=== PATIENT | female | born 1955 | race Caucasian/White ===

== ENCOUNTER 2017-05-05 14:41 | Inpatient (IN) | payer MEDICAID ==
[2017-05-05] VITALS (8 sets, daily range): BP systolic 90–110; BP diastolic 30–36
[~2017-05-05] VITALS: Ht 152.4 cm; Wt 136.5 kg
[~2017-05-05 14:41] MED LIST: ALBU18HF2 INH; BECL8.7A7 INH; CYCL-1 PO; DOCU-20 PO; EST1T PO; IPRA3AMP IH; LACT1CAP65 PO; LEVO200T43 PO; LORA-660 PO; LOVA10TA56 PO; MONT10TA21 PO; MULT-38 PO; NABU-102 PO; NORCO10T PO; NYST1000 PO; OXYB5TAB82 PO; PANT40TA4 PO; PER10325T PO; PRO2.5T PO; ROFL500T7 PO; SPIIN INH; ZES10T PO
[2017-05-05] MEDS ORDERED: midazolam 100mg in NS 100ml 100 ML IV PRN ×2 (15:59→16:03)
[2017-05-05] MEDS ORDERED: vasopressin inj. 60 UNIT in normal saline 100ml IV soln 97 ML IV SCH (16:00)
[2017-05-05] MEDS ORDERED: potassium Cl 20 mEq SR tablet PO PRN ×2 (16:05)
[2017-05-05] MEDS ORDERED: magnesium hydroxide 30ml (MOM) UD suspension PO PRN (16:05)
[2017-05-05] MEDS ORDERED: acetaminophen 325mg tablet PO PRN ×3 (16:05→16:10)
[2017-05-05] MEDS ORDERED: ondansetron/PF 4mg/2ml inj IV PRN ×2 (16:05→16:10)
[2017-05-05] MEDS ORDERED: morphine 8mg/ml inj. syringe IV PRN ×3 (16:05→16:10)
[2017-05-05] MEDS: K, MAG and/or Phos replacement - Verify level? MC SCH (16:05)
[2017-05-05] MEDS ORDERED: ipratropium/albuterol 3ml nebule NEB PRN (16:10)
[2017-05-05] MEDS ORDERED: metoclopramide 5 mg/ml inj IV PRN (16:10)
[2017-05-05] MEDS ORDERED: vancomycin/NS 1 GM ADD-VANTAGE 250 ML IV SCH (16:15)
[2017-05-05 16:21] LABS: ABG BASE EXCESS -6.7 mmol/L (-2.0-3.0); ABG HCO3 22.9 mmol/L (22.0-26.0); ABG OXYGEN SATURATION 99.6 % (95-98); ABG PH (T) 7.127 (7.350-7.450); ABG PO2 (T) 297.9 mmHg (83-108); FCOHb 0.5 % (0.5-1.5); FMetHb 0.3 % (0.3-1.12); FO2Hb 98.8 % (94-100); PEEP 8 cm H2O; RESPIRATORY RATE 8 b/min; TOTAL HEMOGLOBIN 9.8 G/dl (12.0-16.0)
[2017-05-05] MEDS ORDERED: ipratropium/albuterol 3ml nebule ONE (16:22)
[2017-05-05] MEDS: ipratropium/albuterol 3ml nebule NEB SCH ×3 (16:25→23:41)
[2017-05-05 16:28] LABS: HEMATOCRIT 28.7 % (35.0-45.0); MEAN CORPUSCULAR HEMOGLOBIN 27.5 PG (27.0-31.0); MEAN CORPUSCULAR HGB CONC 31.3 % (33.0-36.5); MEAN CORPUSCULAR VOLUME 87.8 FL (78-98); PLATELET COUNT 513 X10'3 (140-440); RED BLOOD COUNT 3.26 X10'6 (4.20-5.60); RED CELL DISTRIBUTION WIDTH 18.7 % (11.5-14.5)
[2017-05-05 16:34] LABS: WHITE BLOOD COUNT 32.3 X10'3 (4.5-11.0)
[2017-05-05 16:36] LABS: OXYGEN SATURATION (MIXED VEN) 68.5 % (60-80); PO2 MIXED VENOUS (TEMP COR) 47.9 mmHg (35-46)
[2017-05-05 16:50] LABS: D-DIMER 2.13 MG/L FEU (0-0.50); INR 1.1 INR; PARTIAL THROMBOPLASTIN TIME 36 SECONDS (22-32); PROTHROMBIN TIME 11.3 SECONDS (9.0-12.0)
[2017-05-05 16:51] LABS: ANISOCYTOSIS 2+; HYPOCHROMASIA 1+; MICROCYTOSIS 1+; PLATELET ESTIMATE INCREASED; TOTAL CELLS COUNTED 100
[2017-05-05 16:52] LABS: LARGE PLATELETS FEW; POLYCHROMASIA 1+; TARGET CELLS 1+
[2017-05-05 16:53] LABS: PLATELET COUNT 513 X10'3 (140-440)
[2017-05-05 16:54] LABS: ALANINE AMINOTRANSFERASE 44 U/L (12-78); ALBUMIN 1.3 G/DL (3.4-5.0); ALBUMIN/GLOBULIN RATIO 0.4 (1.1-1.5); ALKALINE PHOSPHATASE 176 IU/L (46-116); ANION GAP 7 (8-16); ASPARTATE AMINO TRANSFERASE 65 U/L (10-37); BILIRUBIN,TOTAL 0.7 MG/DL (0.1-1.0); BLOOD UREA NITROGEN 48 MG/DL (7-18); BUN/CREATININE RATIO 27.7 (6.6-38.0); CALCIUM 8.3 MG/DL (8.5-10.1); CHLORIDE 109 MMOL/L (99-107); CREATININE 1.73 MG/DL (0.40-0.90); GLUCOSE 75 MG/DL (70-104); POTASSIUM 4.8 MMOL/L (3.5-5.1); SODIUM 143 MMOL/L (135-145); TOTAL CARBON DIOXIDE 26.7 MMOL/L (24-32); eGFR 30 ML/MIN
[2017-05-05 16:55] LABS: TROPONIN I < 0.04 NG/ML (0.0-0.05)
[2017-05-05 17:00] LABS: PHOSPHORUS 6.3 MG/DL (2.3-4.5)
[2017-05-05 17:40] LABS: ABG BASE EXCESS -5.1 mmol/L (-2.0-3.0); ABG HCO3 21.8 mmol/L (22.0-26.0); ABG OXYGEN SATURATION 88.3 % (95-98); ABG PCO2 (T) 48.6 mmHg (32.0-45.0); ABG PH (T) 7.269 (7.350-7.450); ABG PO2 (T) 63.1 mmHg (83-108); FCOHb 0.4 % (0.5-1.5); FMetHb 0.1 % (0.3-1.12); FO2Hb 87.9 % (94-100); PEEP 8 cm H2O; RESPIRATORY RATE 8 b/min; TOTAL HEMOGLOBIN 9.9 G/dl (12.0-16.0)
[2017-05-05] MEDS: hydrocortisone sod succ/PF 100mg/2ml inj. IV SCH ×2 (17:55→20:00)
[2017-05-05] MEDS: pantoprazole 40 MG vial IV SCH (17:55)
[2017-05-05] MEDS: normal saline 1000ml 1,000 ML IV SCH (17:56)
[2017-05-05] MEDS: metroNIDAZOLE-Flagyl 500mg/NS 100 ML IV SCH ×2 (17:56→20:00)
[2017-05-05] MEDS ORDERED: iohexol 350MG/ML 100ml bottle IV ONE (18:42)
[2017-05-05] MEDS: levoFLOXACIN-Levaquin 500mg/D5 100 ML IV SCH (19:27)
[2017-05-05] MEDS: albumin (human) 25% 100 ML IV solution IV SCH (19:42)
[2017-05-05] MEDS: diatr meglu/diatrizoate 30ml oral sol.-(3 dose) bottle PO SCH ×2 (20:15→21:26)
[2017-05-05] MEDS: NORepinephrine 8mg/ 250ml NS 250 ML IV SCH (20:29)
[2017-05-06] VITALS (29 sets, daily range): BP systolic 95–140; BP diastolic 29–55
[2017-05-06] MEDS: albumin (human) 25% 100 ML IV solution IV SCH ×3 (00:07→15:57)
[2017-05-06 00:59] LABS: CLARITY,URINE CLOUDY (Clear); COLOR,URINE YELLOW (Yellow); GLUCOSE, URINE NEGATIVE (Neg); KETONES,URINE 15 mg/dl (Neg); LEUKOCYTE ESTERASE ,URINE NEGATIVE (Neg); NITRITES, URINE NEGATIVE (Neg); OCCULT BLOOD,URINE LARGE (Neg); PROTEIN,URINE 30 mg/dl (Neg); UROBILINOGEN,URINE 0.2 E.U/dL (0.2-1.0)
[2017-05-06 01:07] LABS: UA COLLECTION TYPE FOLEY CATH
[2017-05-06 01:09] LABS: BACTERIA,URINE 1+ /HPF (Neg); RBC,URINE 20-50 /HPF (0-2); SQUAMOUS EPITHELIAL CELL,UR MODERATE /LPF (FEW); WBC,URINE 0-4 /HPF (0-4); YEAST MODERATE /HPF (NEGATIVE)
[2017-05-06 01:21] LABS: ABG BASE EXCESS -5.7 mmol/L (-2.0-3.0); ABG HCO3 20.4 mmol/L (22.0-26.0); ABG OXYGEN SATURATION 99.1 % (95-98); ABG PCO2 (T) 45.3 mmHg (32.0-45.0); ABG PH (T) 7.277 (7.350-7.450); ABG PO2 (T) 155.8 mmHg (83-108); FCOHb 0.2 % (0.5-1.5); FMetHb 0.3 % (0.3-1.12); FO2Hb 98.6 % (94-100); MINUTE VOLUME 9 L/min; PEEP 8 cm H2O; RESPIRATORY RATE 14 b/min; RESPIRATORY RATE (OBSERVED) 14 b/min; TIDAL VOLUME 600 mL; TOTAL HEMOGLOBIN 7.4 G/dl (12.0-16.0)
[2017-05-06] MEDS: hydrocortisone sod succ/PF 100mg/2ml inj. IV SCH ×4 (01:52→20:17)
[2017-05-06] MEDS: ipratropium/albuterol 3ml nebule NEB SCH ×6 (03:26→23:15)
[2017-05-06 05:24] LABS: BASOPHILS % (AUTO) 0 % (0-1); EOSINOPHILS % (AUTO) 0 % (0-6); LYMPHOCYTES # (AUTO) 0.5 X10'3 (1.1-4.8); LYMPHOCYTES % (AUTO) 2.9 % (21-51); MEAN CORPUSCULAR HGB CONC 31.9 % (33.0-36.5); MEAN CORPUSCULAR VOLUME 87.6 FL (78-98); MEAN PLATELET VOLUME 8.1 FL (7.4-10.4); MONOCYTES # (AUTO) 0.6 X10'3 (0-0.9); MONOCYTES % (AUTO) 3.1 % (2-12); NEUTROPHILS # (AUTO) 17.3 X10'3 (1.8-7.7); PLATELET COUNT 360 X10'3 (140-440); RED BLOOD COUNT 2.37 X10'6 (4.20-5.60); RED CELL DISTRIBUTION WIDTH 18.9 % (11.5-14.5); WHITE BLOOD COUNT 18.4 X10'3 (4.5-11.0)
[2017-05-06 05:31] LABS: HEMATOCRIT 20.8 % (35.0-45.0); HEMOGLOBIN 6.6 g/dl (12.0-16.0)
[2017-05-06 05:32] LABS: INR 1.2 INR; PARTIAL THROMBOPLASTIN TIME 44 SECONDS (22-32); PROTHROMBIN TIME 12.1 SECONDS (9.0-12.0)
[2017-05-06 05:48] LABS: ALANINE AMINOTRANSFERASE 84 U/L (12-78); ALBUMIN 2.3 G/DL (3.4-5.0); ALBUMIN/GLOBULIN RATIO 0.8 (1.1-1.5); ALKALINE PHOSPHATASE 110 IU/L (46-116); ANION GAP 11 (8-16); ASPARTATE AMINO TRANSFERASE 165 U/L (10-37); BLOOD UREA NITROGEN 52 MG/DL (7-18); BUN/CREATININE RATIO 25.4 (6.6-38.0); CALCIUM 7.7 MG/DL (8.5-10.1); CHLORIDE 106 MMOL/L (99-107); CREATININE 2.05 MG/DL (0.40-0.90); GLUCOSE 81 MG/DL (70-104); MAGNESIUM 1.7 MG/DL (1.5-2.4); PHOSPHORUS 5.9 MG/DL (2.3-4.5); POTASSIUM 4.6 MMOL/L (3.5-5.1); SODIUM 138 MMOL/L (135-145); TOTAL CARBON DIOXIDE 21.2 MMOL/L (24-32); TOTAL PROTEIN 5.3 G/DL (6.4-8.2); eGFR 24 ML/MIN
[2017-05-06 06:18] LABS: MEAN CORPUSCULAR HEMOGLOBIN 27.8 PG (27.0-31.0); MEAN CORPUSCULAR HGB CONC 32.1 % (33.0-36.5); MEAN CORPUSCULAR VOLUME 86.8 FL (78-98); MEAN PLATELET VOLUME 7.4 FL (7.4-10.4); PLATELET COUNT 363 X10'3 (140-440); RED BLOOD COUNT 2.36 X10'6 (4.20-5.60); RED CELL DISTRIBUTION WIDTH 19.1 % (11.5-14.5); WHITE BLOOD COUNT 17.3 X10'3 (4.5-11.0)
[2017-05-06 06:23] LABS: HEMATOCRIT 20.5 % (35.0-45.0); HEMOGLOBIN 6.6 g/dl (12.0-16.0)
[2017-05-06] MEDS: NORepinephrine 8mg/ 250ml NS 250 ML IV SCH (07:31)
[2017-05-06] MEDS: K, MAG and/or Phos replacement - Verify level? MC SCH ×2 (08:00→16:05)
[2017-05-06] MEDS: normal saline 1000ml 1,000 ML IV SCH ×2 (08:21→18:50)
[2017-05-06] MEDS: metroNIDAZOLE-Flagyl 500mg/NS 100 ML IV SCH (08:21)
[2017-05-06] MEDS: pantoprazole 40 MG vial IV SCH (08:22)
[2017-05-06 09:04] LABS: C DIFF ANTIGEN NEGATIVE (NEGATIVE); C DIFF SPECIMEN=DIARRHEA? ACCEPTABLE; C DIFFICILE TOXINS A&B NEGATIVE (Neg)
[2017-05-06] MEDS: morphine 8mg/ml inj. syringe IV PRN ×2 (09:17→15:03)
[2017-05-06] MEDS: levoFLOXACIN-Levaquin 500mg/D5 100 ML IV SCH (09:33)
[2017-05-06] MEDS ORDERED: gentamicin 40 MG/1 ML inj ONE (10:03)
[2017-05-06] MEDS ORDERED: clindamycin phosphate 150mg/ml inj. ONE ×2 (10:04)
[2017-05-06 10:26] LABS: OXYGEN SATURATION (MIXED VEN) 81.3 % (60-80); PO2 MIXED VENOUS (TEMP COR) 46.9 mmHg (35-46)
[2017-05-06] MEDS ORDERED: NORepinephrine 1 mg/ml inj IV ONE (10:30)
[2017-05-06] MEDS ORDERED: sevoflurane 250ml liquid IH ONE (10:30)
[2017-05-06] MEDS ORDERED: rocuronium 10mg/ml inj IV ONE ×2 (11:49→12:38)
[2017-05-06] MEDS ORDERED: non-formulary drug (Albuterol Sulfate (Ventolin Hfa) 2 PUFFS) INH PRN (13:20)
[2017-05-06 15:05] LABS: HEMATOCRIT 26.2 % (35.0-45.0); HEMOGLOBIN 8.5 g/dl (12.0-16.0); MEAN CORPUSCULAR HEMOGLOBIN 27.8 PG (27.0-31.0); MEAN CORPUSCULAR HGB CONC 32.3 % (33.0-36.5); MEAN PLATELET VOLUME 7.6 FL (7.4-10.4); PLATELET COUNT 321 X10'3 (140-440); RED BLOOD COUNT 3.05 X10'6 (4.20-5.60); RED CELL DISTRIBUTION WIDTH 17.5 % (11.5-14.5); WHITE BLOOD COUNT 11.4 X10'3 (4.5-11.0)
[2017-05-06] MEDS: FENTANYL-0.9 % NACL/PF 100 ML IV PRN (15:43)
[2017-05-06] MEDS ORDERED: Dextrose 10%-water IV solution 1,000 ML IV PRN (16:01)
[2017-05-06] MEDS ORDERED: magnesium Cl slow-release 64mg tablet PO PRN (16:05)
[2017-05-06] MEDS ORDERED: magnesium 2GM in 50ml NS 50 ML IV PRN (16:05)
[2017-05-06] MEDS ORDERED: potassium Cl 20 mEq SR tablet PO PRN ×2 (16:05)
[2017-05-06] MEDS ORDERED: sodium phosphate inj. 30 MMOL in dextrose 5%-water 250 ML IV PRN (16:05)
[2017-05-06] MEDS ORDERED: sodium phosphate inj. 15 MMOL in dextrose 5%-water 150 ML IV PRN (16:05)
[2017-05-06] MEDS ORDERED: Neutra Phos packet PO PRN (16:05)
[2017-05-06] MEDS ORDERED: magnesium 4gm in 100ml NS 100 ML IV PRN (16:05)
[2017-05-06] MEDS: diatr meglu/diatrizoate 30ml oral sol.-(3 dose) bottle PO SCH (16:30)
[2017-05-06] MEDS: meropenem inj 500 MG in normal saline 100ml IV soln 100 ML IV SCH (17:18)
[2017-05-06] MEDS: fat emulsion IV 100 ML, MVI, adult No.4 with vit. K 10 ML, Trace element-5 inj. 1 ML in... IV SCH ×4 (17:59)
[2017-05-07] VITALS (32 sets, daily range): BP systolic 94–138; BP diastolic 32–54
[2017-05-07] MEDS: albumin (human) 25% 100 ML IV solution IV SCH ×3 (01:44→15:55)
[2017-05-07] MEDS: hydrocortisone sod succ/PF 100mg/2ml inj. IV SCH ×4 (01:45→22:14)
[2017-05-07] MEDS: FENTANYL-0.9 % NACL/PF 100 ML IV PRN ×3 (02:34→22:16)
[2017-05-07 03:20] LABS: BASOPHILS % (AUTO) 0.1 % (0-1); EOSINOPHILS % (AUTO) 0.1 % (0-6); HEMOGLOBIN 7.1 g/dl (12.0-16.0); LYMPHOCYTES # (AUTO) 0.3 X10'3 (1.1-4.8); LYMPHOCYTES % (AUTO) 3.6 % (21-51); MEAN CORPUSCULAR HEMOGLOBIN 27.9 PG (27.0-31.0); MEAN CORPUSCULAR HGB CONC 32.6 % (33.0-36.5); MEAN CORPUSCULAR VOLUME 85.7 FL (78-98); MEAN PLATELET VOLUME 7.9 FL (7.4-10.4); MONOCYTES # (AUTO) 0.1 X10'3 (0-0.9); MONOCYTES % (AUTO) 0.9 % (2-12); NEUTROPHILS # (AUTO) 8.3 X10'3 (1.8-7.7); NEUTROPHILS % (AUTO) 95.3 % (42-75); PLATELET COUNT 250 X10'3 (140-440); RED BLOOD COUNT 2.53 X10'6 (4.20-5.60); WHITE BLOOD COUNT 8.7 X10'3 (4.5-11.0)
[2017-05-07 03:22] LABS: HEMATOCRIT 21.7 % (35.0-45.0)
[2017-05-07 03:45] LABS: INR 1.2 INR; PARTIAL THROMBOPLASTIN TIME 51 SECONDS (22-32); PROTHROMBIN TIME 12.4 SECONDS (9.0-12.0)
[2017-05-07] MEDS: ipratropium/albuterol 3ml nebule NEB SCH ×6 (03:48→23:28)
[2017-05-07 04:01] LABS: ALANINE AMINOTRANSFERASE 125 U/L (12-78); ALBUMIN 2.9 G/DL (3.4-5.0); ALBUMIN/GLOBULIN RATIO 1.2 (1.1-1.5); ALKALINE PHOSPHATASE 74 IU/L (46-116); ANION GAP 14 (8-16); ASPARTATE AMINO TRANSFERASE 193 U/L (10-37); BILIRUBIN,TOTAL 1.5 MG/DL (0.1-1.0); BLOOD UREA NITROGEN 62 MG/DL (7-18); BUN/CREATININE RATIO 23.5 (6.6-38.0); CALCIUM 7.7 MG/DL (8.5-10.1); CHLORIDE 109 MMOL/L (99-107); CREATININE 2.64 MG/DL (0.40-0.90); GLUCOSE 159 MG/DL (70-104); MAGNESIUM 1.8 MG/DL (1.5-2.4); PHOSPHORUS 5.4 MG/DL (2.3-4.5); POTASSIUM 4.4 MMOL/L (3.5-5.1); PREALBUMIN 10.5 MG/DL (19-36); SODIUM 145 MMOL/L (135-145); TOTAL CARBON DIOXIDE 21.9 MMOL/L (24-32); TOTAL PROTEIN 5.3 G/DL (6.4-8.2); TRIGLYCERIDES 99 MG/DL (20-135); eGFR 18 ML/MIN
[2017-05-07 04:01] LABS: ABG BASE EXCESS -8.4 mmol/L (-2.0-3.0); ABG HCO3 16.9 mmol/L (22.0-26.0); ABG OXYGEN SATURATION 97.2 % (95-98); ABG PH (T) 7.307 (7.350-7.450); ABG PO2 (T) 110.5 mmHg (83-108); FCOHb 0.3 % (0.5-1.5); FMetHb 0.5 % (0.3-1.12); FO2Hb 96.4 % (94-100); MINUTE VOLUME 10 L/min; PATIENT TEMPERATURE 37.8; PEEP 8 cm H2O; RESPIRATORY RATE 14 b/min; RESPIRATORY RATE (OBSERVED) 18 b/min; TIDAL VOLUME 600 mL; TOTAL HEMOGLOBIN 7.6 G/dl (12.0-16.0)
[2017-05-07 04:10] LABS: PO2 MIXED VENOUS (TEMP COR) 46.1 mmHg (35-46)
[2017-05-07 04:11] LABS: OXYGEN SATURATION (MIXED VEN) 75.3 % (60-80)
[2017-05-07 04:16] LABS: ANISOCYTOSIS 2+; PLATELET ESTIMATE NORMAL; TOTAL CELLS COUNTED 100
[2017-05-07 04:17] LABS: HYPOCHROMASIA 1+; TARGET CELLS 1+
[2017-05-07] MEDS: meropenem inj 500 MG in normal saline 100ml IV soln 100 ML IV SCH ×2 (07:13→20:41)
[2017-05-07] MEDS: K, MAG and/or Phos replacement - Verify level? MC SCH (07:14)
[2017-05-07] MEDS: normal saline 1000ml 1,000 ML IV SCH ×2 (07:55→20:51)
[2017-05-07] MEDS: pantoprazole 40 MG vial IV SCH (07:55)
[2017-05-07] MEDS ORDERED: levoFLOXACIN-Levaquin 250mg/D5 100 ML IV SCH (08:00)
[2017-05-07] MEDS: fluticasone furoate 200 MCG/puff inhaler IH SCH (08:00)
[2017-05-07] MEDS ORDERED: non-formulary drug (Tiotropium Bromide (SPIRIVA inhaler) 1 CAP) INH SCH (08:00)
[2017-05-07] MEDS ORDERED: dextrose 50%-water 50ml dispensing syringe IV PRN ×2 (08:25)
[2017-05-07] MEDS ORDERED: glucagon, human recombinant 1mg kit SUBCUT PRN (08:25)
[2017-05-07 08:52] LABS: VANCOMYCIN,RANDOM 38.4 UG/ML
[2017-05-07] MEDS: insulin regular, human vial - multi-dose SQ SCH (09:53)
[2017-05-07] MEDS: insulin regular, human 100 UNITS in normal saline 100ml IV soln 99 ML IV SCH ×14 (11:05→22:40)
[2017-05-07 11:28] LABS: BASOPHILS % (AUTO) 0.1 % (0-1); EOSINOPHILS % (AUTO) 0 % (0-6); HEMATOCRIT 24.9 % (35.0-45.0); HEMOGLOBIN 8.1 g/dl (12.0-16.0); LYMPHOCYTES # (AUTO) 0.3 X10'3 (1.1-4.8); LYMPHOCYTES % (AUTO) 2.7 % (21-51); MEAN CORPUSCULAR HEMOGLOBIN 27.8 PG (27.0-31.0); MEAN CORPUSCULAR HGB CONC 32.7 % (33.0-36.5); MEAN CORPUSCULAR VOLUME 85.1 FL (78-98); MEAN PLATELET VOLUME 7.9 FL (7.4-10.4); MONOCYTES # (AUTO) 0.3 X10'3 (0-0.9); MONOCYTES % (AUTO) 3.2 % (2-12); NEUTROPHILS # (AUTO) 9.6 X10'3 (1.8-7.7); PLATELET COUNT 235 X10'3 (140-440); RED BLOOD COUNT 2.93 X10'6 (4.20-5.60); RED CELL DISTRIBUTION WIDTH 17.6 % (11.5-14.5); WHITE BLOOD COUNT 10.3 X10'3 (4.5-11.0)
[2017-05-07 12:21] LABS: TOTAL CELLS COUNTED 100
[2017-05-07 12:23] LABS: ANISOCYTOSIS 2+; BURR CELLS FEW; ELLIPTOCYTES FEW; LARGE PLATELETS FEW; PLATELET ESTIMATE NORMAL; POLYCHROMASIA FEW; TARGET CELLS 1+; TEAR DROP CELLS FEW
[2017-05-07] MEDS ORDERED: clindamycin phosphate 150mg/ml inj. ONE (15:23)
[2017-05-07] MEDS ORDERED: gentamicin 40 MG/1 ML inj ONE (15:23)
[2017-05-07] MEDS ORDERED: magnesium 4gm in 100ml NS 100 ML IV ONE (16:25)
[2017-05-07] MEDS ORDERED: levoTHYROXINE sod inj. 100mcg/5 ml vial IV ONE (16:45)
[2017-05-07 17:04] LABS: TROPONIN I < 0.04 NG/ML (0.0-0.05)
[2017-05-07] MEDS ORDERED: fentaNYL /PF 50mcg/ml 5ml ampule ONE (18:28)
[2017-05-07] MEDS ORDERED: albumin (Human) 5% 250ml 250 ML IV ONE (19:02)
[2017-05-07] MEDS ORDERED: pancuronium br 1mg/ml inj IV ONE (19:13)
[2017-05-07] MEDS ORDERED: fluconazole/NS 400mg/200ml bag 200 ML IV ONE (22:15)
[2017-05-08] VITALS (26 sets, daily range): BP systolic 109–145; BP diastolic 47–64
[2017-05-08 01:07] LABS: BASOPHILS % (AUTO) 0.3 % (0-1); EOSINOPHILS % (AUTO) 0.3 % (0-6); HEMATOCRIT 24.4 % (35.0-45.0); HEMOGLOBIN 8.2 g/dl (12.0-16.0); LYMPHOCYTES # (AUTO) 0.6 X10'3 (1.1-4.8); LYMPHOCYTES % (AUTO) 4.8 % (21-51); MEAN CORPUSCULAR HEMOGLOBIN 28.7 PG (27.0-31.0); MEAN CORPUSCULAR HGB CONC 33.6 % (33.0-36.5); MEAN CORPUSCULAR VOLUME 85.3 FL (78-98); MEAN PLATELET VOLUME 8.1 FL (7.4-10.4); MONOCYTES # (AUTO) 0.7 X10'3 (0-0.9); MONOCYTES % (AUTO) 5.2 % (2-12); NEUTROPHILS # (AUTO) 11.5 X10'3 (1.8-7.7); NEUTROPHILS % (AUTO) 89.4 % (42-75); PLATELET COUNT 222 X10'3 (140-440); RED BLOOD COUNT 2.86 X10'6 (4.20-5.60); RED CELL DISTRIBUTION WIDTH 17.1 % (11.5-14.5); WHITE BLOOD COUNT 12.8 X10'3 (4.5-11.0)
[2017-05-08 01:10] LABS: INR 1.1 INR; PARTIAL THROMBOPLASTIN TIME 46 SECONDS (22-32)
[2017-05-08 01:14] LABS: ALANINE AMINOTRANSFERASE 99 U/L (12-78); ALBUMIN 3.2 G/DL (3.4-5.0); ALBUMIN/GLOBULIN RATIO 1.4 (1.1-1.5); ALKALINE PHOSPHATASE 83 IU/L (46-116); ANION GAP 13 (8-16); ASPARTATE AMINO TRANSFERASE 96 U/L (10-37); BILIRUBIN,TOTAL 1.4 MG/DL (0.1-1.0); BLOOD UREA NITROGEN 76 MG/DL (7-18); BUN/CREATININE RATIO 27.3 (6.6-38.0); CALCIUM 8.2 MG/DL (8.5-10.1); CHLORIDE 109 MMOL/L (99-107); CREATININE 2.78 MG/DL (0.40-0.90); GLUCOSE 131 MG/DL (70-104); MAGNESIUM 2.7 MG/DL (1.5-2.4); PHOSPHORUS 5.4 MG/DL (2.3-4.5); POTASSIUM 4.2 MMOL/L (3.5-5.1); SODIUM 144 MMOL/L (135-145); TOTAL CARBON DIOXIDE 21.9 MMOL/L (24-32); TOTAL PROTEIN 5.5 G/DL (6.4-8.2); eGFR 17 ML/MIN
[2017-05-08 01:58] LABS: ACANTHOCYTES 1+; ANISOCYTOSIS 2+; BURR CELLS 5; HYPOCHROMASIA 1+; PLATELET ESTIMATE NORMAL; POLYCHROMASIA FEW; TARGET CELLS 1+; TOTAL CELLS COUNTED 100
[2017-05-08 03:36] LABS: ABG BASE EXCESS -10.1 mmol/L (-2.0-3.0); ABG HCO3 17.4 mmol/L (22.0-26.0); ABG OXYGEN SATURATION 98.9 % (95-98); ABG PCO2 (T) 47.3 mmHg (32.0-45.0); ABG PH (T) 7.187 (7.350-7.450); FCOHb 0.3 % (0.5-1.5); FMetHb 0.2 % (0.3-1.12); FO2Hb 98.4 % (94-100); MINUTE VOLUME 9 L/min; PATIENT TEMPERATURE 37.5; PEEP 8 cm H2O; RESPIRATORY RATE 14 b/min; RESPIRATORY RATE (OBSERVED) 14 b/min; TIDAL VOLUME 600 mL
[2017-05-08] MEDS: hydrocortisone sod succ/PF 100mg/2ml inj. IV SCH ×4 (03:57→20:01)
[2017-05-08] MEDS: FENTANYL-0.9 % NACL/PF 100 ML IV PRN ×2 (06:05→18:06)
[2017-05-08] MEDS ORDERED: ipratropium/albuterol 3ml nebule NEB SCH (07:00)
[2017-05-08] MEDS: ipratropium/albuterol 3ml nebule NEB SCH ×5 (07:31→23:37)
[2017-05-08] MEDS: K, MAG and/or Phos replacement - Verify level? MC SCH (07:51)
[2017-05-08] MEDS: fluticasone furoate 200 MCG/puff inhaler IH SCH (08:00)
[2017-05-08] MEDS: pantoprazole 40 MG vial IV SCH (08:36)
[2017-05-08] MEDS: meropenem inj 500 MG in normal saline 100ml IV soln 100 ML IV SCH ×2 (08:36→20:02)
[2017-05-08] MEDS: levoTHYROXINE sod inj. 100mcg/5 ml vial IV SCH (08:37)
[2017-05-08 09:25] LABS: ABG BASE EXCESS -7.7 mmol/L (-2.0-3.0); ABG HCO3 18.5 mmol/L (22.0-26.0); ABG OXYGEN SATURATION 98.3 % (95-98); ABG PCO2 (T) 41.2 mmHg (32.0-45.0); ABG PH (T) 7.272 (7.350-7.450); ABG PO2 (T) 135.1 mmHg (83-108); FCOHb 0.1 % (0.5-1.5); FLOW 45 L/min; FMetHb 0.2 % (0.3-1.12); MINUTE VOLUME 11 L/min; PATIENT TEMPERATURE 37.2; PEEP 8 cm H2O; RESPIRATORY RATE 18 b/min; RESPIRATORY RATE (OBSERVED) 18 b/min; TIDAL VOLUME 600 mL; TOTAL HEMOGLOBIN 8.8 G/dl (12.0-16.0)
[2017-05-08] MEDS: fat emulsion IV 100 ML, MVI, adult No.4 with vit. K 10 ML, Trace element-5 inj. 1 ML in... IV SCH ×4 (15:12)
[2017-05-08] MEDS: insulin regular, human 100 UNITS in normal saline 100ml IV soln 99 ML IV SCH ×14 (17:19→23:09)
[2017-05-08] MEDS: lactobacillus rhamnosus 10,000 MMU CELLS/CAPSULE PO SCH (20:01)
[2017-05-08] MEDS ORDERED: VANCOMYCIN LEVEL IV ONE (20:30)
[2017-05-09] VITALS (23 sets, daily range): BP systolic 93–144; BP diastolic 49–71
[2017-05-09] MEDS: insulin regular, human 100 UNITS in normal saline 100ml IV soln 99 ML IV SCH ×28 (00:14→22:12)
[2017-05-09] MEDS: hydrocortisone sod succ/PF 100mg/2ml inj. IV SCH ×4 (02:14→19:54)
[2017-05-09 02:16] LABS: BASOPHILS # (AUTO) 0.1 X10'3 (0-0.2); BASOPHILS % (AUTO) 0.6 % (0-1); EOSINOPHILS % (AUTO) 0.1 % (0-6); HEMATOCRIT 25.6 % (35.0-45.0); HEMOGLOBIN 8.5 g/dl (12.0-16.0); LYMPHOCYTES # (AUTO) 0.6 X10'3 (1.1-4.8); LYMPHOCYTES % (AUTO) 3.7 % (21-51); MEAN CORPUSCULAR HEMOGLOBIN 28.4 PG (27.0-31.0); MEAN CORPUSCULAR HGB CONC 33.3 % (33.0-36.5); MEAN CORPUSCULAR VOLUME 85.2 FL (78-98); MEAN PLATELET VOLUME 7.9 FL (7.4-10.4); MONOCYTES # (AUTO) 0.9 X10'3 (0-0.9); MONOCYTES % (AUTO) 6.1 % (2-12); NEUTROPHILS # (AUTO) 13.4 X10'3 (1.8-7.7); NEUTROPHILS % (AUTO) 89.5 % (42-75); PLATELET COUNT 229 X10'3 (140-440); RED BLOOD COUNT 3.01 X10'6 (4.20-5.60); RED CELL DISTRIBUTION WIDTH 17.1 % (11.5-14.5)
[2017-05-09 02:24] LABS: INR 1.1 INR; PARTIAL THROMBOPLASTIN TIME 37 SECONDS (22-32); PROTHROMBIN TIME 10.9 SECONDS (9.0-12.0)
[2017-05-09 02:28] LABS: ALANINE AMINOTRANSFERASE 73 U/L (12-78); ALBUMIN 2.5 G/DL (3.4-5.0); ALKALINE PHOSPHATASE 157 IU/L (46-116); ANION GAP 10 (8-16); ASPARTATE AMINO TRANSFERASE 45 U/L (10-37); BILIRUBIN,TOTAL 0.9 MG/DL (0.1-1.0); BLOOD UREA NITROGEN 91 MG/DL (7-18); BUN/CREATININE RATIO 37.4 (6.6-38.0); CALCIUM 8.3 MG/DL (8.5-10.1); CHLORIDE 110 MMOL/L (99-107); CREATININE 2.43 MG/DL (0.40-0.90); GLUCOSE 147 MG/DL (70-104); MAGNESIUM 2.5 MG/DL (1.5-2.4); PHOSPHORUS 5.1 MG/DL (2.3-4.5); POTASSIUM 4.5 MMOL/L (3.5-5.1); PREALBUMIN 10.5 MG/DL (19-36); SODIUM 142 MMOL/L (135-145); TOTAL CARBON DIOXIDE 21.6 MMOL/L (24-32); TOTAL PROTEIN 5.1 G/DL (6.4-8.2); TRIGLYCERIDES 90 MG/DL (20-135); eGFR 20 ML/MIN
[2017-05-09 02:48] LABS: ACANTHOCYTES 1+; ANISOCYTOSIS 2+; BURR CELLS 5; HYPOCHROMASIA 1+; PLATELET ESTIMATE NORMAL; TARGET CELLS 1+; TOTAL CELLS COUNTED 100
[2017-05-09] MEDS: ipratropium/albuterol 3ml nebule NEB SCH ×6 (04:38→23:08)
[2017-05-09 05:21] LABS: ABG BASE EXCESS -7.8 mmol/L (-2.0-3.0); ABG HCO3 18.2 mmol/L (22.0-26.0); ABG OXYGEN SATURATION 98.6 % (95-98); ABG PCO2 (T) 38.9 mmHg (32.0-45.0); ABG PH (T) 7.289 (7.350-7.450); ABG PO2 (T) 155.8 mmHg (83-108); FMetHb 0.1 % (0.3-1.12); FO2Hb 98.5 % (94-100); MINUTE VOLUME 14 L/min; PATIENT TEMPERATURE 37.1; PEEP 8 cm H2O; RESPIRATORY RATE 18 b/min; RESPIRATORY RATE (OBSERVED) 18 b/min; TIDAL VOLUME 600 mL; TOTAL HEMOGLOBIN 9.8 G/dl (12.0-16.0)
[2017-05-09] MEDS: normal saline 1000ml 1,000 ML IV SCH (05:30)
[2017-05-09] MEDS: FENTANYL-0.9 % NACL/PF 100 ML IV PRN ×2 (05:31→14:04)
[2017-05-09] MEDS ORDERED: vancomycin/NS 1 GM ADD-VANTAGE 250 ML IV PRN (06:20)
[2017-05-09] MEDS: K, MAG and/or Phos replacement - Verify level? MC SCH (06:45)
[2017-05-09] MEDS: levoTHYROXINE sod inj. 100mcg/5 ml vial IV SCH (07:08)
[2017-05-09] MEDS: pantoprazole 40 MG vial IV SCH (07:08)
[2017-05-09] MEDS: meropenem inj 500 MG in normal saline 100ml IV soln 100 ML IV SCH ×2 (07:09→19:54)
[2017-05-09] MEDS: lactobacillus rhamnosus 10,000 MMU CELLS/CAPSULE PO SCH ×2 (07:10→19:54)
[2017-05-09] MEDS: fat emulsion IV 100 ML, MVI, adult No.4 with vit. K 10 ML, Trace element-5 inj. 1 ML in... IV SCH ×4 (07:10)
[2017-05-09] MEDS ORDERED: FLU VACC QS2017-18 36MOS UP/PF 60 MCG/0.5 ML SYRINGE IMVAC ONE (09:00)
[2017-05-09] MEDS: fluconazole-Diflucan 200mg/NS 100 ML IV SCH (12:21)
[2017-05-09] MEDS: LORazepam 2 mg/ml vial IV PRN ×2 (16:06→22:33)
[2017-05-10] VITALS (24 sets, daily range): BP systolic 95–144; BP diastolic 35–69
[2017-05-10] MEDS: hydrocortisone sod succ/PF 100mg/2ml inj. IV SCH ×4 (01:17→21:04)
[2017-05-10] MEDS: FENTANYL-0.9 % NACL/PF 100 ML IV PRN ×3 (01:17→20:53)
[2017-05-10 02:39] LABS: BASOPHILS # (AUTO) 0.2 X10'3 (0-0.2); BASOPHILS % (AUTO) 1.1 % (0-1); EOSINOPHILS % (AUTO) 0.1 % (0-6); HEMATOCRIT 26.3 % (35.0-45.0); HEMOGLOBIN 8.9 g/dl (12.0-16.0); LYMPHOCYTES # (AUTO) 0.6 X10'3 (1.1-4.8); LYMPHOCYTES % (AUTO) 3.2 % (21-51); MEAN CORPUSCULAR HEMOGLOBIN 28.5 PG (27.0-31.0); MEAN CORPUSCULAR HGB CONC 33.6 % (33.0-36.5); MEAN CORPUSCULAR VOLUME 84.7 FL (78-98); MEAN PLATELET VOLUME 8.4 FL (7.4-10.4); MONOCYTES # (AUTO) 0.7 X10'3 (0-0.9); MONOCYTES % (AUTO) 4.2 % (2-12); NEUTROPHILS # (AUTO) 15.8 X10'3 (1.8-7.7); NEUTROPHILS % (AUTO) 91.4 % (42-75); PLATELET COUNT 263 X10'3 (140-440); RED BLOOD COUNT 3.11 X10'6 (4.20-5.60); RED CELL DISTRIBUTION WIDTH 16.6 % (11.5-14.5); WHITE BLOOD COUNT 17.3 X10'3 (4.5-11.0)
[2017-05-10 02:47] LABS: INR 1.1 INR; PARTIAL THROMBOPLASTIN TIME 30 SECONDS (22-32); PROTHROMBIN TIME 11.1 SECONDS (9.0-12.0)
[2017-05-10 02:52] LABS: ALANINE AMINOTRANSFERASE 58 U/L (12-78); ALBUMIN 2.3 G/DL (3.4-5.0); ALBUMIN/GLOBULIN RATIO 0.8 (1.1-1.5); ALKALINE PHOSPHATASE 195 IU/L (46-116); ANION GAP 10 (8-16); ASPARTATE AMINO TRANSFERASE 31 U/L (10-37); BILIRUBIN,TOTAL 0.7 MG/DL (0.1-1.0); BLOOD UREA NITROGEN 104 MG/DL (7-18); BUN/CREATININE RATIO 51.2 (6.6-38.0); CALCIUM 8.1 MG/DL (8.5-10.1); CHLORIDE 111 MMOL/L (99-107); CREATININE 2.03 MG/DL (0.40-0.90); GLUCOSE 131 MG/DL (70-104); MAGNESIUM 2.2 MG/DL (1.5-2.4); PHOSPHORUS 5.2 MG/DL (2.3-4.5); SODIUM 143 MMOL/L (135-145); TOTAL CARBON DIOXIDE 22.4 MMOL/L (24-32); TOTAL PROTEIN 5.1 G/DL (6.4-8.2); VANCOMYCIN,RANDOM 28.5 UG/ML; eGFR 25 ML/MIN
[2017-05-10] MEDS ORDERED: VANCOMYCIN LEVEL IV SCH (03:00)
[2017-05-10] MEDS: fat emulsion IV 100 ML, MVI, adult No.4 with vit. K 10 ML, Trace element-5 inj. 1 ML in... IV SCH ×8 (03:08→23:43)
[2017-05-10] MEDS: ipratropium/albuterol 3ml nebule NEB SCH ×6 (03:40→23:16)
[2017-05-10] MEDS: LORazepam 2 mg/ml vial IV PRN ×2 (03:50→13:23)
[2017-05-10] MEDS: insulin regular, human 100 UNITS in normal saline 100ml IV soln 99 ML IV SCH ×14 (04:10→23:30)
[2017-05-10 04:51] LABS: ABG HCO3 19.1 mmol/L (22.0-26.0); ABG OXYGEN SATURATION 97.7 % (95-98); ABG PCO2 (T) 41.3 mmHg (32.0-45.0); ABG PH (T) 7.284 (7.350-7.450); ABG PO2 (T) 106.6 mmHg (83-108); ALLEN'S TEST Positive; FCOHb 0.1 % (0.5-1.5); FMetHb 0.2 % (0.3-1.12); FO2Hb 97.4 % (94-100); MINUTE VOLUME 12 L/min; PEEP 5 cm H2O; RESPIRATORY RATE 18 b/min; RESPIRATORY RATE (OBSERVED) 20 b/min; TIDAL VOLUME 600 mL; TOTAL HEMOGLOBIN 9.5 G/dl (12.0-16.0)
[2017-05-10] MEDS: meropenem inj 500 MG in normal saline 100ml IV soln 100 ML IV SCH ×2 (07:49→20:55)
[2017-05-10] MEDS: lactobacillus rhamnosus 10,000 MMU CELLS/CAPSULE PO SCH ×2 (07:50→21:05)
[2017-05-10] MEDS: levoTHYROXINE sod inj. 100mcg/5 ml vial IV SCH (07:50)
[2017-05-10] MEDS: fluconazole-Diflucan 200mg/NS 100 ML IV SCH (07:50)
[2017-05-10] MEDS: pantoprazole 40 MG vial IV SCH (07:50)
[2017-05-10] MEDS: K, MAG and/or Phos replacement - Verify level? MC SCH (08:00)
[2017-05-10] MEDS: diatr meglu/diatrizoate 30ml oral sol.-(3 dose) bottle PO SCH ×2 (09:58→12:00)
[2017-05-10] MEDS: furosemide inj 100 ML IV SCH (09:58)
[2017-05-10 10:09] LABS: CLARITY,URINE SLIGHTLY CLOUDY (Clear); COLOR,URINE YELLOW (Yellow); GLUCOSE, URINE NEGATIVE (Neg); KETONES,URINE NEGATIVE (Neg); LEUKOCYTE ESTERASE ,URINE NEGATIVE (Neg); NITRITES, URINE NEGATIVE (Neg); OCCULT BLOOD,URINE MODERATE (Neg); PROTEIN,URINE TRACE mg/dl (Neg); UROBILINOGEN,URINE 0.2 E.U/dL (0.2-1.0)
[2017-05-10 10:33] LABS: UA COLLECTION TYPE FOLEY CATH
[2017-05-10 10:43] LABS: BACTERIA,URINE FEW /HPF (Neg); MUCUS STRANDS FEW /LPF (Neg); SQUAMOUS EPITHELIAL CELL,UR FEW /LPF (FEW); WBC,URINE 0-4 /HPF (0-4)
[2017-05-10 10:44] LABS: YEAST MANY /HPF (NEGATIVE)
[2017-05-10] MEDS: linezolid 600mg tablet PO SCH ×2 (12:10→21:04)
[2017-05-10 21:51] LABS: ALANINE AMINOTRANSFERASE 52 U/L (12-78); ALBUMIN 2.2 G/DL (3.4-5.0); ALBUMIN/GLOBULIN RATIO 0.8 (1.1-1.5); ALKALINE PHOSPHATASE 196 IU/L (46-116); ANION GAP 10 (8-16); ASPARTATE AMINO TRANSFERASE 26 U/L (10-37); BILIRUBIN,TOTAL 0.7 MG/DL (0.1-1.0); BLOOD UREA NITROGEN 118 MG/DL (7-18); BUN/CREATININE RATIO 64.5 (6.6-38.0); CALCIUM 8.3 MG/DL (8.5-10.1); CHLORIDE 110 MMOL/L (99-107); CREATININE 1.83 MG/DL (0.40-0.90); GLUCOSE 139 MG/DL (70-104); POTASSIUM 3.9 MMOL/L (3.5-5.1); SODIUM 144 MMOL/L (135-145); TOTAL CARBON DIOXIDE 24.4 MMOL/L (24-32); TOTAL PROTEIN 5.1 G/DL (6.4-8.2); eGFR 28 ML/MIN
[2017-05-11] VITALS (22 sets, daily range): BP systolic 95–151; BP diastolic 42–74
[2017-05-11 03:26] LABS: BASOPHILS % (AUTO) 0.1 % (0-1); EOSINOPHILS # (AUTO) 0.3 X10'3 (0-0.9); EOSINOPHILS % (AUTO) 1.4 % (0-6); HEMATOCRIT 28.7 % (35.0-45.0); HEMOGLOBIN 9.3 g/dl (12.0-16.0); LYMPHOCYTES # (AUTO) 0.8 X10'3 (1.1-4.8); MEAN CORPUSCULAR HEMOGLOBIN 27.7 PG (27.0-31.0); MEAN CORPUSCULAR HGB CONC 32.5 % (33.0-36.5); MEAN CORPUSCULAR VOLUME 85.3 FL (78-98); MEAN PLATELET VOLUME 7.9 FL (7.4-10.4); MONOCYTES # (AUTO) 0.5 X10'3 (0-0.9); MONOCYTES % (AUTO) 2.7 % (2-12); NEUTROPHILS # (AUTO) 17.2 X10'3 (1.8-7.7); NEUTROPHILS % (AUTO) 91.8 % (42-75); PLATELET COUNT 262 X10'3 (140-440); RED BLOOD COUNT 3.36 X10'6 (4.20-5.60); RED CELL DISTRIBUTION WIDTH 17.6 % (11.5-14.5); WHITE BLOOD COUNT 18.8 X10'3 (4.5-11.0)
[2017-05-11] MEDS: hydrocortisone sod succ/PF 100mg/2ml inj. IV SCH ×4 (03:27→20:23)
[2017-05-11] MEDS: ipratropium/albuterol 3ml nebule NEB SCH ×6 (03:29→23:29)
[2017-05-11 03:31] LABS: ABG BASE EXCESS -3.4 mmol/L (-2.0-3.0); ABG HCO3 21.8 mmol/L (22.0-26.0); ABG OXYGEN SATURATION 96.7 % (95-98); ABG PCO2 (T) 40.2 mmHg (32.0-45.0); ABG PH (T) 7.353 (7.350-7.450); ABG PO2 (T) 94.5 mmHg (83-108); ALLEN'S TEST Positive; FCOHb 0.3 % (0.5-1.5); FMetHb 0.1 % (0.3-1.12); FO2Hb 96.3 % (94-100); MINUTE VOLUME 12 L/min; PEEP 5 cm H2O; RESPIRATORY RATE 18 b/min; RESPIRATORY RATE (OBSERVED) 19 b/min; TIDAL VOLUME 600 mL; TOTAL HEMOGLOBIN 10.2 G/dl (12.0-16.0)
[2017-05-11 03:39] LABS: INR 1.1 INR; PARTIAL THROMBOPLASTIN TIME 26 SECONDS (22-32); PROTHROMBIN TIME 11.4 SECONDS (9.0-12.0)
[2017-05-11 03:42] LABS: ALANINE AMINOTRANSFERASE 51 U/L (12-78); ALBUMIN 2.2 G/DL (3.4-5.0); ALBUMIN/GLOBULIN RATIO 0.7 (1.1-1.5); ALKALINE PHOSPHATASE 202 IU/L (46-116); ANION GAP 11 (8-16); ASPARTATE AMINO TRANSFERASE 28 U/L (10-37); BILIRUBIN,TOTAL 0.7 MG/DL (0.1-1.0); BLOOD UREA NITROGEN 122 MG/DL (7-18); BUN/CREATININE RATIO 69.3 (6.6-38.0); CALCIUM 8.3 MG/DL (8.5-10.1); CHLORIDE 109 MMOL/L (99-107); CREATININE 1.76 MG/DL (0.40-0.90); GLUCOSE 135 MG/DL (70-104); MAGNESIUM 2.1 MG/DL (1.5-2.4); PHOSPHORUS 5.7 MG/DL (2.3-4.5); POTASSIUM 3.6 MMOL/L (3.5-5.1); SODIUM 145 MMOL/L (135-145); TOTAL CARBON DIOXIDE 24.9 MMOL/L (24-32); TOTAL PROTEIN 5.2 G/DL (6.4-8.2); VANCOMYCIN,RANDOM 22.5 UG/ML; eGFR 29 ML/MIN
[2017-05-11 03:49] LABS: TOTAL CELLS COUNTED 100
[2017-05-11 03:50] LABS: ANISOCYTOSIS 3+; PLATELET ESTIMATE NORMAL
[2017-05-11 03:51] LABS: TARGET CELLS 1+
[2017-05-11] MEDS: normal saline 1000ml 1,000 ML IV SCH (05:26)
[2017-05-11] MEDS: K, MAG and/or Phos replacement - Verify level? MC SCH (08:00)
[2017-05-11] MEDS: pantoprazole 40 MG vial IV SCH (08:13)
[2017-05-11] MEDS: meropenem inj 500 MG in normal saline 100ml IV soln 100 ML IV SCH ×2 (08:13→20:23)
[2017-05-11] MEDS: levoTHYROXINE 175mcg tablet OGT SCH (08:13)
[2017-05-11] MEDS: lactobacillus rhamnosus 10,000 MMU CELLS/CAPSULE PO SCH ×2 (08:14→20:23)
[2017-05-11] MEDS: fluconazole-Diflucan 200mg/NS 100 ML IV SCH (08:14)
[2017-05-11] MEDS: linezolid 600mg tablet PO SCH ×2 (08:14→20:23)
[2017-05-11] MEDS: FENTANYL-0.9 % NACL/PF 100 ML IV PRN ×2 (08:21→22:14)
[2017-05-11 09:53] LABS: ALANINE AMINOTRANSFERASE 55 U/L (12-78); ALBUMIN 2.3 G/DL (3.4-5.0); ALBUMIN/GLOBULIN RATIO 0.7 (1.1-1.5); ALKALINE PHOSPHATASE 210 IU/L (46-116); ANION GAP 16 (8-16); ASPARTATE AMINO TRANSFERASE 35 U/L (10-37); BILIRUBIN,TOTAL 0.8 MG/DL (0.1-1.0); BLOOD UREA NITROGEN 129 MG/DL (7-18); BUN/CREATININE RATIO 70.5 (6.6-38.0); CALCIUM 8.2 MG/DL (8.5-10.1); CHLORIDE 108 MMOL/L (99-107); CREATININE 1.83 MG/DL (0.40-0.90); GLUCOSE 140 MG/DL (70-104); POTASSIUM 3.4 MMOL/L (3.5-5.1); SODIUM 148 MMOL/L (135-145); TOTAL CARBON DIOXIDE 23.6 MMOL/L (24-32); TOTAL PROTEIN 5.4 G/DL (6.4-8.2); eGFR 28 ML/MIN
[2017-05-11] MEDS: insulin regular, human 100 UNITS in normal saline 100ml IV soln 99 ML IV SCH ×2 (10:17)
[2017-05-11] MEDS: potassium Cl 40MEQ/250ML bag 250 ML IV PRN (10:44)
[2017-05-11 11:13] LABS: MAGNESIUM 2.1 MG/DL (1.5-2.4); PHOSPHORUS 5.9 MG/DL (2.3-4.5)
[2017-05-11] MEDS: furosemide inj 100 ML IV SCH (12:13)
[2017-05-11 17:09] LABS: ALANINE AMINOTRANSFERASE 55 U/L (12-78); ALBUMIN 2.4 G/DL (3.4-5.0); ALBUMIN/GLOBULIN RATIO 0.8 (1.1-1.5); ALKALINE PHOSPHATASE 224 IU/L (46-116); ANION GAP 11 (8-16); ASPARTATE AMINO TRANSFERASE 34 U/L (10-37); BILIRUBIN,TOTAL 0.8 MG/DL (0.1-1.0); BLOOD UREA NITROGEN 131 MG/DL (7-18); BUN/CREATININE RATIO 78.4 (6.6-38.0); CALCIUM 8.3 MG/DL (8.5-10.1); CHLORIDE 109 MMOL/L (99-107); CREATININE 1.67 MG/DL (0.40-0.90); GLUCOSE 94 MG/DL (70-104); POTASSIUM 3.7 MMOL/L (3.5-5.1); SODIUM 149 MMOL/L (135-145); TOTAL CARBON DIOXIDE 28.7 MMOL/L (24-32); TOTAL PROTEIN 5.6 G/DL (6.4-8.2); eGFR 31 ML/MIN
[2017-05-12] VITALS (24 sets, daily range): BP systolic 114–158; BP diastolic 53–80
[2017-05-12] MEDS: albumin (human) 25% 100 ML IV solution IV SCH ×3 (00:20→16:10)
[2017-05-12] MEDS: furosemide 40mg/4ml inj IV SCH ×2 (00:21→09:31)
[2017-05-12] MEDS: hydrocortisone sod succ/PF 100mg/2ml inj. IV SCH ×2 (02:00→09:33)
[2017-05-12] MEDS: ipratropium/albuterol 3ml nebule NEB SCH ×6 (03:12→23:25)
[2017-05-12 03:37] LABS: BASOPHILS # (AUTO) 0.1 X10'3 (0-0.2); BASOPHILS % (AUTO) 0.4 % (0-1); EOSINOPHILS # (AUTO) 0.3 X10'3 (0-0.9); EOSINOPHILS % (AUTO) 1.3 % (0-6); HEMATOCRIT 29.1 % (35.0-45.0); HEMOGLOBIN 9.6 g/dl (12.0-16.0); LYMPHOCYTES # (AUTO) 0.8 X10'3 (1.1-4.8); LYMPHOCYTES % (AUTO) 4.3 % (21-51); MEAN CORPUSCULAR HEMOGLOBIN 27.8 PG (27.0-31.0); MEAN CORPUSCULAR HGB CONC 32.8 % (33.0-36.5); MEAN CORPUSCULAR VOLUME 84.7 FL (78-98); MEAN PLATELET VOLUME 7.8 FL (7.4-10.4); MONOCYTES # (AUTO) 0.6 X10'3 (0-0.9); MONOCYTES % (AUTO) 2.9 % (2-12); NEUTROPHILS # (AUTO) 17.7 X10'3 (1.8-7.7); NEUTROPHILS % (AUTO) 91.1 % (42-75); PLATELET COUNT 279 X10'3 (140-440); RED BLOOD COUNT 3.44 X10'6 (4.20-5.60); RED CELL DISTRIBUTION WIDTH 17.5 % (11.5-14.5); WHITE BLOOD COUNT 19.4 X10'3 (4.5-11.0)
[2017-05-12 03:49] LABS: INR 1.2 INR; PARTIAL THROMBOPLASTIN TIME 25 SECONDS (22-32); PROTHROMBIN TIME 12.1 SECONDS (9.0-12.0)
[2017-05-12 03:52] LABS: ALANINE AMINOTRANSFERASE 50 U/L (12-78); ALBUMIN 2.6 G/DL (3.4-5.0); ALBUMIN/GLOBULIN RATIO 0.9 (1.1-1.5); ALKALINE PHOSPHATASE 201 IU/L (46-116); ANION GAP 13 (8-16); ASPARTATE AMINO TRANSFERASE 32 U/L (10-37); BILIRUBIN,TOTAL 0.8 MG/DL (0.1-1.0); BLOOD UREA NITROGEN 143 MG/DL (7-18); BUN/CREATININE RATIO 89.9 (6.6-38.0); CALCIUM 8.2 MG/DL (8.5-10.1); CHLORIDE 109 MMOL/L (99-107); CREATININE 1.59 MG/DL (0.40-0.90); GLUCOSE 162 MG/DL (70-104); MAGNESIUM 1.9 MG/DL (1.5-2.4); PHOSPHORUS 6.7 MG/DL (2.3-4.5); SODIUM 152 MMOL/L (135-145); TOTAL CARBON DIOXIDE 30.4 MMOL/L (24-32); TOTAL PROTEIN 5.5 G/DL (6.4-8.2); eGFR 33 ML/MIN
[2017-05-12] MEDS ORDERED: potassium Cl 40MEQ/250ML bag 500 ML IV ONE (04:25)
[2017-05-12 04:31] LABS: TOTAL CELLS COUNTED 100
[2017-05-12 04:32] LABS: ANISOCYTOSIS 2+; PLATELET ESTIMATE NORMAL; TARGET CELLS 1+
[2017-05-12] MEDS: potassium Cl 40MEQ/250ML bag 250 ML IV PRN ×4 (04:32→20:02)
[2017-05-12 04:46] LABS: ABG BASE EXCESS 1.3 mmol/L (-2.0-3.0); ABG HCO3 26.6 mmol/L (22.0-26.0); ABG OXYGEN SATURATION 94.9 % (95-98); ABG PCO2 (T) 43.5 mmHg (32.0-45.0); ABG PH (T) 7.401 (7.350-7.450); ALLEN'S TEST Positive; FCOHb 0.3 % (0.5-1.5); FO2Hb 94.6 % (94-100); PATIENT TEMPERATURE 36.1; PEEP 5 cm H2O; RESPIRATORY RATE 12 b/min; TIDAL VOLUME 600 mL; TOTAL HEMOGLOBIN 10.3 G/dl (12.0-16.0)
[2017-05-12] MEDS: K, MAG and/or Phos replacement - Verify level? MC SCH (08:00)
[2017-05-12] MEDS: levoTHYROXINE 175mcg tablet OGT SCH (09:25)
[2017-05-12] MEDS: fluconazole-Diflucan 200mg/NS 100 ML IV SCH (09:31)
[2017-05-12] MEDS: meropenem inj 500 MG in normal saline 100ml IV soln 100 ML IV SCH ×2 (09:32→20:20)
[2017-05-12] MEDS: lactobacillus rhamnosus 10,000 MMU CELLS/CAPSULE PO SCH ×2 (09:33→20:20)
[2017-05-12] MEDS: linezolid 600mg tablet PO SCH ×2 (09:33→20:20)
[2017-05-12] MEDS: pantoprazole 40 MG vial IV SCH (09:51)
[2017-05-12 11:48] LABS: CREATININE,URINE RANDOM 3.2 MG/DL; TOTAL PROTEIN,URINE RANDOM 15.1 MG/DL
[2017-05-12] MEDS: FENTANYL-0.9 % NACL/PF 100 ML IV PRN ×3 (11:53→23:12)
[2017-05-12] MEDS: insulin regular, human vial - multi-dose SQ SCH ×2 (16:13→20:41)
[2017-05-12 17:07] LABS: ALANINE AMINOTRANSFERASE 48 U/L (12-78); ALBUMIN 2.9 G/DL (3.4-5.0); ALKALINE PHOSPHATASE 194 IU/L (46-116); ANION GAP 13 (8-16); ASPARTATE AMINO TRANSFERASE 28 U/L (10-37); BILIRUBIN,TOTAL 0.9 MG/DL (0.1-1.0); BLOOD UREA NITROGEN 145 MG/DL (7-18); BUN/CREATININE RATIO 96.7 (6.6-38.0); CALCIUM 8.1 MG/DL (8.5-10.1); CHLORIDE 111 MMOL/L (99-107); GLUCOSE 188 MG/DL (70-104); SODIUM 154 MMOL/L (135-145); TOTAL CARBON DIOXIDE 30.4 MMOL/L (24-32); TOTAL PROTEIN 5.7 G/DL (6.4-8.2); eGFR 35 ML/MIN
[2017-05-12 17:14] LABS: POTASSIUM 2.9 MMOL/L (3.5-5.1)
[2017-05-12] MEDS: insulin regular, human 100 UNITS in normal saline 100ml IV soln 99 ML IV SCH ×2 (23:37)
[2017-05-12 23:38] LABS: ALANINE AMINOTRANSFERASE 55 U/L (12-78); ALBUMIN 3.3 G/DL (3.4-5.0); ALBUMIN/GLOBULIN RATIO 1.2 (1.1-1.5); ALKALINE PHOSPHATASE 228 IU/L (46-116); ANION GAP 11 (8-16); ASPARTATE AMINO TRANSFERASE 41 U/L (10-37); BILIRUBIN,TOTAL 0.8 MG/DL (0.1-1.0); BLOOD UREA NITROGEN 133 MG/DL (7-18); BUN/CREATININE RATIO 96.4 (6.6-38.0); CALCIUM 8.6 MG/DL (8.5-10.1); CHLORIDE 115 MMOL/L (99-107); CREATININE 1.38 MG/DL (0.40-0.90); GLUCOSE 94 MG/DL (70-104); MAGNESIUM 1.8 MG/DL (1.5-2.4); POTASSIUM 3.2 MMOL/L (3.5-5.1); TOTAL CARBON DIOXIDE 31.2 MMOL/L (24-32); TOTAL PROTEIN 6.1 G/DL (6.4-8.2); eGFR 38 ML/MIN
[2017-05-12 23:40] LABS: SODIUM 157 MMOL/L (135-145)
[2017-05-13] VITALS (24 sets, daily range): BP systolic 71–169; BP diastolic 39–92
[2017-05-13] MEDS ORDERED: potassium Cl 40MEQ/250ML bag 250 ML IV ONE (00:55)
[2017-05-13] MEDS: insulin regular, human vial - multi-dose SQ SCH ×4 (03:20→20:43)
[2017-05-13] MEDS: ipratropium/albuterol 3ml nebule NEB SCH ×6 (03:26→23:36)
[2017-05-13] MEDS: FENTANYL-0.9 % NACL/PF 100 ML IV PRN ×4 (03:42→23:45)
[2017-05-13 05:28] LABS: BASOPHILS % (AUTO) 0.1 % (0-1); EOSINOPHILS # (AUTO) 0.5 X10'3 (0-0.9); EOSINOPHILS % (AUTO) 2.1 % (0-6); HEMATOCRIT 31.3 % (35.0-45.0); HEMOGLOBIN 10.2 g/dl (12.0-16.0); LYMPHOCYTES # (AUTO) 1.6 X10'3 (1.1-4.8); LYMPHOCYTES % (AUTO) 6.6 % (21-51); MEAN CORPUSCULAR HEMOGLOBIN 27.6 PG (27.0-31.0); MEAN CORPUSCULAR HGB CONC 32.5 % (33.0-36.5); MEAN CORPUSCULAR VOLUME 84.9 FL (78-98); MEAN PLATELET VOLUME 8.2 FL (7.4-10.4); MONOCYTES # (AUTO) 0.6 X10'3 (0-0.9); MONOCYTES % (AUTO) 2.5 % (2-12); NEUTROPHILS % (AUTO) 88.7 % (42-75); PLATELET COUNT 303 X10'3 (140-440); RED BLOOD COUNT 3.69 X10'6 (4.20-5.60); RED CELL DISTRIBUTION WIDTH 16.7 % (11.5-14.5); WHITE BLOOD COUNT 23.7 X10'3 (4.5-11.0)
[2017-05-13 05:41] LABS: ALANINE AMINOTRANSFERASE 53 U/L (12-78); ALKALINE PHOSPHATASE 210 IU/L (46-116); ANION GAP 15 (8-16); ASPARTATE AMINO TRANSFERASE 38 U/L (10-37); BILIRUBIN,TOTAL 0.7 MG/DL (0.1-1.0); BLOOD UREA NITROGEN 134 MG/DL (7-18); BUN/CREATININE RATIO 104.7 (6.6-38.0); CALCIUM 8.4 MG/DL (8.5-10.1); CHLORIDE 117 MMOL/L (99-107); CREATININE 1.28 MG/DL (0.40-0.90); GLUCOSE 110 MG/DL (70-104); MAGNESIUM 1.7 MG/DL (1.5-2.4); PHOSPHORUS 4.3 MG/DL (2.3-4.5); POTASSIUM 3.2 MMOL/L (3.5-5.1); PREALBUMIN 24.5 MG/DL (19-36); TOTAL CARBON DIOXIDE 27.7 MMOL/L (24-32); TOTAL PROTEIN 5.9 G/DL (6.4-8.2); TRIGLYCERIDES 127 MG/DL (20-135); eGFR 42 ML/MIN
[2017-05-13 05:45] LABS: SODIUM 160 MMOL/L (135-145)
[2017-05-13 05:46] LABS: ABG BASE EXCESS 0.8 mmol/L (-2.0-3.0); ABG HCO3 26.3 mmol/L (22.0-26.0); ABG OXYGEN SATURATION 94.5 % (95-98); ABG PH (T) 7.375 (7.350-7.450); ALLEN'S TEST Positive; FCOHb 0.2 % (0.5-1.5); FMetHb 0.3 % (0.3-1.12); PEEP 5 cm H2O; RESPIRATORY RATE (OBSERVED) 14 b/min; TOTAL HEMOGLOBIN 11.4 G/dl (12.0-16.0)
[2017-05-13 06:08] LABS: INR 1.1 INR; PARTIAL THROMBOPLASTIN TIME 24 SECONDS (22-32); PROTHROMBIN TIME 11.7 SECONDS (9.0-12.0)
[2017-05-13 07:10] LABS: ANISOCYTOSIS 1+; BANDS% (MANUAL) 3 % (0-10); LYMPHOCYTES % (MANUAL) 10 % (21-51); METAMYLEOCYTES% (MANUAL) 2 % (0-0); MONOCYTES % (MANUAL) 2 % (2-12); NEUTROPHILS % (MANUAL) 83 % (42-75); PLATELET ESTIMATE NORMAL; TARGET CELLS 2+; TOTAL CELLS COUNTED 100
[2017-05-13] MEDS: K, MAG and/or Phos replacement - Verify level? MC SCH (08:00)
[2017-05-13] MEDS: levoTHYROXINE 175mcg tablet OGT SCH (08:10)
[2017-05-13] MEDS: meropenem inj 500 MG in normal saline 100ml IV soln 100 ML IV SCH (08:11)
[2017-05-13] MEDS: pantoprazole 40 MG vial IV SCH (08:13)
[2017-05-13] MEDS: linezolid 600mg tablet PO SCH ×2 (08:17→20:20)
[2017-05-13] MEDS: lactobacillus rhamnosus 10,000 MMU CELLS/CAPSULE PO SCH ×2 (08:17→20:20)
[2017-05-13] MEDS: fluconazole-Diflucan 200mg/NS 100 ML IV SCH (09:42)
[2017-05-13] MEDS: LORazepam 2 mg/ml vial IV PRN (09:56)
[2017-05-13 10:38] LABS: C DIFF ANTIGEN NEGATIVE (NEGATIVE); C DIFF SPECIMEN=DIARRHEA? ACCEPTABLE; C DIFFICILE TOXINS A&B NEGATIVE (Neg)
[2017-05-13] MEDS ORDERED: normal saline 1000ml 100 ML IV PRN (13:28)
[2017-05-13] MEDS ORDERED: albumin (human) 25% 100ml IV 100 ML IV PRN (13:30)
[2017-05-13] MEDS ORDERED: metoclopramide 5 mg/ml inj IV PRN (13:30)
[2017-05-13] MEDS ORDERED: heparin 1,000unit/ml 10ml vial 10 ML IV ONE (13:36)
[2017-05-13] MEDS ORDERED: normal saline 1000ml 250 ML IV PRN (13:36)
[2017-05-13] MEDS: Potassium Cl inj 40 MEQ in dextrose 5%-water 980 ML IV SCH ×2 (13:37→19:54)
[2017-05-13] MEDS ORDERED: heparin 1,000 units/ml 10ml inj HE ONE ×2 (13:40)
[2017-05-13 17:38] LABS: BLOOD UREA NITROGEN 63 MG/DL (7-18); CREATININE 0.69 MG/DL (0.40-0.90); eGFR 86 ML/MIN
[2017-05-13 18:23] LABS: ALBUMIN 2.9 G/DL (3.4-5.0); ANION GAP 7 (8-16); CALCIUM 8.1 MG/DL (8.5-10.1); CHLORIDE 108 MMOL/L (99-107); GLUCOSE 122 MG/DL (70-104); POTASSIUM 3.5 MMOL/L (3.5-5.1); SODIUM 146 MMOL/L (135-145); TOTAL CARBON DIOXIDE 30.8 MMOL/L (24-32)
[2017-05-13] MEDS: meropenem inj 1 GM in normal saline 100ml IV soln 100 ML IV SCH (19:54)
[2017-05-13 19:57] LABS: MAGNESIUM 1.6 MG/DL (1.5-2.4); PHOSPHORUS 2.5 MG/DL (2.3-4.5)
[2017-05-14] VITALS (23 sets, daily range): BP systolic 81–140; BP diastolic 41–62
[2017-05-14] MEDS: insulin regular, human vial - multi-dose SQ SCH ×2 (01:59→08:15)
[2017-05-14] MEDS: Potassium Cl inj 40 MEQ in dextrose 5%-water 980 ML IV SCH ×2 (03:11→07:10)
[2017-05-14] MEDS: ipratropium/albuterol 3ml nebule NEB SCH ×6 (03:26→23:37)
[2017-05-14 04:29] LABS: BASOPHILS % (AUTO) 0.1 % (0-1); EOSINOPHILS # (AUTO) 0.9 X10'3 (0-0.9); EOSINOPHILS % (AUTO) 3.2 % (0-6); HEMATOCRIT 29.6 % (35.0-45.0); HEMOGLOBIN 9.6 g/dl (12.0-16.0); LYMPHOCYTES # (AUTO) 1.5 X10'3 (1.1-4.8); LYMPHOCYTES % (AUTO) 5.3 % (21-51); MEAN CORPUSCULAR HEMOGLOBIN 27.9 PG (27.0-31.0); MEAN CORPUSCULAR HGB CONC 32.6 % (33.0-36.5); MEAN CORPUSCULAR VOLUME 85.4 FL (78-98); MEAN PLATELET VOLUME 8.1 FL (7.4-10.4); MONOCYTES # (AUTO) 0.4 X10'3 (0-0.9); MONOCYTES % (AUTO) 1.4 % (2-12); NEUTROPHILS # (AUTO) 26.1 X10'3 (1.8-7.7); PLATELET COUNT 253 X10'3 (140-440); RED BLOOD COUNT 3.46 X10'6 (4.20-5.60); RED CELL DISTRIBUTION WIDTH 17.5 % (11.5-14.5)
[2017-05-14 04:40] LABS: INR 1.1 INR; PARTIAL THROMBOPLASTIN TIME 28 SECONDS (22-32); PROTHROMBIN TIME 11.4 SECONDS (9.0-12.0)
[2017-05-14 04:42] LABS: ALANINE AMINOTRANSFERASE 43 U/L (12-78); ALBUMIN 2.5 G/DL (3.4-5.0); ALBUMIN/GLOBULIN RATIO 0.8 (1.1-1.5); ALKALINE PHOSPHATASE 175 IU/L (46-116); ANION GAP 7 (8-16); ASPARTATE AMINO TRANSFERASE 30 U/L (10-37); BILIRUBIN,TOTAL 0.9 MG/DL (0.1-1.0); BLOOD UREA NITROGEN 63 MG/DL (7-18); CALCIUM 8.4 MG/DL (8.5-10.1); CHLORIDE 105 MMOL/L (99-107); GLUCOSE 115 MG/DL (70-104); MAGNESIUM 1.4 MG/DL (1.5-2.4); PHOSPHORUS 3.3 MG/DL (2.3-4.5); POTASSIUM 4.7 MMOL/L (3.5-5.1); SODIUM 141 MMOL/L (135-145); TOTAL CARBON DIOXIDE 29.3 MMOL/L (24-32); TOTAL PROTEIN 5.5 G/DL (6.4-8.2); eGFR 63 ML/MIN
[2017-05-14 06:17] LABS: BANDS% (MANUAL) 2 % (0-10); EOSINOPHILS % (MANUAL) 1 % (0-6); LYMPHOCYTES % (MANUAL) 11 % (21-51); MONOCYTES % (MANUAL) 4 % (2-12); NEUTROPHILS % (MANUAL) 81 % (42-75); TOTAL CELLS COUNTED 100
[2017-05-14 06:18] LABS: ANISOCYTOSIS 1+; METAMYLEOCYTES% (MANUAL) 1 % (0-0); PLATELET ESTIMATE NORMAL; TARGET CELLS 1+
[2017-05-14] MEDS: meropenem inj 1 GM in normal saline 100ml IV soln 100 ML IV SCH ×2 (07:41→16:00)
[2017-05-14] MEDS: K, MAG and/or Phos replacement - Verify level? MC SCH (07:43)
[2017-05-14] MEDS: insulin regular, human 100 UNITS in normal saline 100ml IV soln 99 ML IV SCH ×2 (07:43)
[2017-05-14] MEDS: pantoprazole 40 MG vial IV SCH (08:07)
[2017-05-14] MEDS: linezolid 600mg tablet PO SCH ×2 (08:08→19:36)
[2017-05-14] MEDS: lactobacillus rhamnosus 10,000 MMU CELLS/CAPSULE PO SCH ×2 (08:08→19:36)
[2017-05-14] MEDS: levoTHYROXINE 175mcg tablet OGT SCH (08:08)
[2017-05-14] MEDS: fluconazole-Diflucan 200mg/NS 100 ML IV SCH (08:09)
[2017-05-14] MEDS: LORazepam 2 mg/ml vial IV PRN (09:06)
[2017-05-14 09:59] LABS: ALANINE AMINOTRANSFERASE 40 U/L (12-78); ALBUMIN 2.4 G/DL (3.4-5.0); ALBUMIN/GLOBULIN RATIO 0.8 (1.1-1.5); ALKALINE PHOSPHATASE 167 IU/L (46-116); ANION GAP 9 (8-16); ASPARTATE AMINO TRANSFERASE 29 U/L (10-37); BLOOD UREA NITROGEN 67 MG/DL (7-18); BUN/CREATININE RATIO 71.3 (6.6-38.0); CALCIUM 8.1 MG/DL (8.5-10.1); CHLORIDE 104 MMOL/L (99-107); CREATININE 0.94 MG/DL (0.40-0.90); GLUCOSE 118 MG/DL (70-104); POTASSIUM 4.7 MMOL/L (3.5-5.1); SODIUM 139 MMOL/L (135-145); TOTAL CARBON DIOXIDE 26.1 MMOL/L (24-32); TOTAL PROTEIN 5.4 G/DL (6.4-8.2); eGFR 60 ML/MIN
[2017-05-14] MEDS ORDERED: magnesium 2GM in 50ml NS 50 ML IV PRN (10:30)
[2017-05-14] MEDS ORDERED: magnesium 4gm in 100ml NS 100 ML IV PRN (10:30)
[2017-05-14] MEDS: FENTANYL-0.9 % NACL/PF 100 ML IV PRN ×2 (10:38→21:53)
[2017-05-14] MEDS: hydrocortisone sod succ/PF 100mg/2ml inj. IV SCH (16:00)
[2017-05-15] VITALS (24 sets, daily range): BP systolic 81–139; BP diastolic 42–81
[2017-05-15] MEDS: hydrocortisone sod succ/PF 100mg/2ml inj. IV SCH ×4 (00:16→23:33)
[2017-05-15] MEDS: meropenem inj 1 GM in normal saline 100ml IV soln 100 ML IV SCH ×4 (00:16→23:37)
[2017-05-15 02:36] LABS: BASOPHILS % (AUTO) 0 % (0-1); EOSINOPHILS # (AUTO) 0.5 X10'3 (0-0.9); EOSINOPHILS % (AUTO) 1.8 % (0-6); HEMATOCRIT 28.6 % (35.0-45.0); HEMOGLOBIN 9.3 g/dl (12.0-16.0); LYMPHOCYTES # (AUTO) 0.7 X10'3 (1.1-4.8); LYMPHOCYTES % (AUTO) 2.5 % (21-51); MEAN CORPUSCULAR HEMOGLOBIN 27.8 PG (27.0-31.0); MEAN CORPUSCULAR HGB CONC 32.5 % (33.0-36.5); MEAN CORPUSCULAR VOLUME 85.5 FL (78-98); MEAN PLATELET VOLUME 8.6 FL (7.4-10.4); MONOCYTES # (AUTO) 0.2 X10'3 (0-0.9); MONOCYTES % (AUTO) 0.9 % (2-12); NEUTROPHILS # (AUTO) 25.1 X10'3 (1.8-7.7); NEUTROPHILS % (AUTO) 94.8 % (42-75); PLATELET COUNT 234 X10'3 (140-440); RED BLOOD COUNT 3.35 X10'6 (4.20-5.60); RED CELL DISTRIBUTION WIDTH 17.1 % (11.5-14.5)
[2017-05-15 02:41] LABS: WHITE BLOOD COUNT 26.5 X10'3 (4.5-11.0)
[2017-05-15 02:48] LABS: PARTIAL THROMBOPLASTIN TIME 27 SECONDS (22-32); PROTHROMBIN TIME 10.7 SECONDS (9.0-12.0)
[2017-05-15 02:51] LABS: ALANINE AMINOTRANSFERASE 37 U/L (12-78); ALBUMIN 2.3 G/DL (3.4-5.0); ALBUMIN/GLOBULIN RATIO 0.7 (1.1-1.5); ALKALINE PHOSPHATASE 203 IU/L (46-116); ANION GAP 9 (8-16); ASPARTATE AMINO TRANSFERASE 26 U/L (10-37); BILIRUBIN,TOTAL 0.8 MG/DL (0.1-1.0); BLOOD UREA NITROGEN 74 MG/DL (7-18); BUN/CREATININE RATIO 67.3 (6.6-38.0); CALCIUM 8.4 MG/DL (8.5-10.1); CHLORIDE 103 MMOL/L (99-107); GLUCOSE 126 MG/DL (70-104); MAGNESIUM 2.7 MG/DL (1.5-2.4); PHOSPHORUS 4.7 MG/DL (2.3-4.5); POTASSIUM 5.2 MMOL/L (3.5-5.1); SODIUM 137 MMOL/L (135-145); TOTAL CARBON DIOXIDE 25.5 MMOL/L (24-32); TOTAL PROTEIN 5.4 G/DL (6.4-8.2); eGFR 50 ML/MIN
[2017-05-15 03:02] LABS: ANISOCYTOSIS 1+; PLATELET ESTIMATE NORMAL; TOTAL CELLS COUNTED 100
[2017-05-15 03:03] LABS: TOXIC GRANULATION 2+
[2017-05-15] MEDS: ipratropium/albuterol 3ml nebule NEB SCH ×6 (03:43→23:31)
[2017-05-15 04:31] LABS: ABG BASE EXCESS -3.1 mmol/L (-2.0-3.0); ABG HCO3 20.6 mmol/L (22.0-26.0); ABG OXYGEN SATURATION 95.3 % (95-98); ABG PCO2 (T) 31.3 mmHg (32.0-45.0); ABG PH (T) 7.434 (7.350-7.450); ABG PO2 (T) 78.8 mmHg (83-108); FMetHb 0.1 % (0.3-1.12); FO2Hb 95.2 % (94-100); MINUTE VOLUME 10 L/min; PATIENT TEMPERATURE 36.8; PEEP 5 cm H2O; RESPIRATORY RATE 12 b/min; RESPIRATORY RATE (OBSERVED) 12 b/min; TIDAL VOLUME 700 mL
[2017-05-15] MEDS: pantoprazole 40 MG vial IV SCH (07:37)
[2017-05-15] MEDS: fluconazole 100mg tablet PO SCH (07:38)
[2017-05-15] MEDS: linezolid 600mg tablet PO SCH ×2 (07:38→19:46)
[2017-05-15] MEDS: lactobacillus rhamnosus 10,000 MMU CELLS/CAPSULE PO SCH ×2 (07:38→19:46)
[2017-05-15] MEDS: levoTHYROXINE 175mcg tablet OGT SCH (07:38)
[2017-05-15] MEDS: K, MAG and/or Phos replacement - Verify level? MC SCH (07:38)
[2017-05-15] MEDS: FENTANYL-0.9 % NACL/PF 100 ML IV PRN ×3 (08:02→23:33)
[2017-05-15 15:12] LABS: HBSAG SCREEN Negative (Negative)
[2017-05-15] MEDS: albumin (human) 25% 100 ML IV solution IV SCH ×2 (15:38→23:34)
[2017-05-15] MEDS: insulin regular, human 100 UNITS in normal saline 100ml IV soln 99 ML IV SCH ×2 (16:34)
[2017-05-16] VITALS (23 sets, daily range): BP systolic 117–170; BP diastolic 55–94
[2017-05-16 02:24] LABS: PARTIAL THROMBOPLASTIN TIME 30 SECONDS (22-32); PROTHROMBIN TIME 10.8 SECONDS (9.0-12.0)
[2017-05-16 02:31] LABS: ALANINE AMINOTRANSFERASE 43 U/L (12-78); ALBUMIN 3.3 G/DL (3.4-5.0); ALBUMIN/GLOBULIN RATIO 1.3 (1.1-1.5); ALKALINE PHOSPHATASE 207 IU/L (46-116); ANION GAP 12 (8-16); ASPARTATE AMINO TRANSFERASE 31 U/L (10-37); BILIRUBIN,TOTAL 0.7 MG/DL (0.1-1.0); BLOOD UREA NITROGEN 70 MG/DL (7-18); BUN/CREATININE RATIO 73.7 (6.6-38.0); CALCIUM 8.7 MG/DL (8.5-10.1); CHLORIDE 103 MMOL/L (99-107); CREATININE 0.95 MG/DL (0.40-0.90); GLUCOSE 130 MG/DL (70-104); MAGNESIUM 2.3 MG/DL (1.5-2.4); PHOSPHORUS 4.9 MG/DL (2.3-4.5); POTASSIUM 4.7 MMOL/L (3.5-5.1); PREALBUMIN 19.4 MG/DL (19-36); SODIUM 138 MMOL/L (135-145); TOTAL CARBON DIOXIDE 22.7 MMOL/L (24-32); TOTAL PROTEIN 5.9 G/DL (6.4-8.2); TRIGLYCERIDES 95 MG/DL (20-135); eGFR 59 ML/MIN
[2017-05-16 02:38] LABS: BASOPHILS % (AUTO) 0.1 % (0-1); EOSINOPHILS # (AUTO) 0.3 X10'3 (0-0.9); EOSINOPHILS % (AUTO) 1.9 % (0-6); HEMATOCRIT 23.6 % (35.0-45.0); HEMOGLOBIN 7.7 g/dl (12.0-16.0); LYMPHOCYTES # (AUTO) 0.6 X10'3 (1.1-4.8); LYMPHOCYTES % (AUTO) 3.7 % (21-51); MEAN CORPUSCULAR HEMOGLOBIN 27.9 PG (27.0-31.0); MEAN CORPUSCULAR HGB CONC 32.7 % (33.0-36.5); MEAN CORPUSCULAR VOLUME 85.2 FL (78-98); MEAN PLATELET VOLUME 8.7 FL (7.4-10.4); MONOCYTES # (AUTO) 0.3 X10'3 (0-0.9); MONOCYTES % (AUTO) 1.7 % (2-12); NEUTROPHILS % (AUTO) 92.6 % (42-75); PLATELET COUNT 219 X10'3 (140-440); RED BLOOD COUNT 2.77 X10'6 (4.20-5.60); RED CELL DISTRIBUTION WIDTH 17.2 % (11.5-14.5); WHITE BLOOD COUNT 16.2 X10'3 (4.5-11.0)
[2017-05-16] MEDS: ipratropium/albuterol 3ml nebule NEB SCH ×5 (02:56→20:07)
[2017-05-16 04:50] LABS: ABG BASE EXCESS -2.8 mmol/L (-2.0-3.0); ABG HCO3 21.4 mmol/L (22.0-26.0); ABG OXYGEN SATURATION 94.7 % (95-98); ABG PCO2 (T) 34.1 mmHg (32.0-45.0); ABG PH (T) 7.414 (7.350-7.450); ABG PO2 (T) 78.7 mmHg (83-108); ALLEN'S TEST Positive; FCOHb 0.3 % (0.5-1.5); FMetHb 0.1 % (0.3-1.12); FO2Hb 94.3 % (94-100); MINUTE VOLUME 10 L/min; PATIENT TEMPERATURE 36.7; PEEP 5 cm H2O; RESPIRATORY RATE 12 b/min; RESPIRATORY RATE (OBSERVED) 14 b/min; TIDAL VOLUME 700 mL; TOTAL HEMOGLOBIN 9.1 G/dl (12.0-16.0)
[2017-05-16] MEDS: FENTANYL-0.9 % NACL/PF 100 ML IV PRN (07:37)
[2017-05-16] MEDS: fluconazole 100mg tablet PO SCH (07:44)
[2017-05-16] MEDS: meropenem inj 1 GM in normal saline 100ml IV soln 100 ML IV SCH ×2 (07:44→18:33)
[2017-05-16] MEDS: levoTHYROXINE 175mcg tablet OGT SCH (07:45)
[2017-05-16] MEDS: hydrocortisone sod succ/PF 100mg/2ml inj. IV SCH ×2 (07:45→16:00)
[2017-05-16] MEDS: albumin (human) 25% 100 ML IV solution IV SCH (07:45)
[2017-05-16] MEDS: lactobacillus rhamnosus 10,000 MMU CELLS/CAPSULE PO SCH ×2 (07:45→22:00)
[2017-05-16] MEDS: pantoprazole 40 MG vial IV SCH (07:45)
[2017-05-16] MEDS: linezolid 600mg tablet PO SCH ×2 (07:45→22:00)
[2017-05-16] MEDS: K, MAG and/or Phos replacement - Verify level? MC SCH (09:00)
[2017-05-16] MEDS ORDERED: HYDROcodone/acetaminophen 10/325mg tab PO PRN (10:25)
[2017-05-16] MEDS: HYDROcodone/acetaminophen 10/325mg tab PO PRN ×2 (11:18→12:18)
[2017-05-16] MEDS: LORazepam 2 mg/ml vial IV PRN (15:13)
[2017-05-16] MEDS: oxyCODONE SR 40mg (sust release) tab PO SCH ×2 (15:25→16:00)
[2017-05-16] MEDS: furosemide 40mg tablet PO SCH (22:00)
[2017-05-17] VITALS (24 sets, daily range): BP systolic 114–176; BP diastolic 50–81
[2017-05-17] MEDS: meropenem inj 1 GM in normal saline 100ml IV soln 100 ML IV SCH ×3 (00:10→16:18)
[2017-05-17] MEDS: oxyCODONE SR 40mg (sust release) tab PO SCH ×3 (00:10→14:13)
[2017-05-17] MEDS: hydrocortisone sod succ/PF 100mg/2ml inj. IV SCH ×3 (00:10→16:18)
[2017-05-17] MEDS: insulin regular, human 100 UNITS in normal saline 100ml IV soln 99 ML IV SCH ×2 (03:37)
[2017-05-17 03:43] LABS: BASOPHILS % (AUTO) 0 % (0-1); EOSINOPHILS # (AUTO) 0.5 X10'3 (0-0.9); EOSINOPHILS % (AUTO) 2.3 % (0-6); HEMATOCRIT 29.4 % (35.0-45.0); HEMOGLOBIN 9.4 g/dl (12.0-16.0); LYMPHOCYTES # (AUTO) 0.4 X10'3 (1.1-4.8); LYMPHOCYTES % (AUTO) 1.8 % (21-51); MEAN CORPUSCULAR VOLUME 87.5 FL (78-98); MEAN PLATELET VOLUME 8.4 FL (7.4-10.4); MONOCYTES # (AUTO) 0.5 X10'3 (0-0.9); MONOCYTES % (AUTO) 2.3 % (2-12); NEUTROPHILS # (AUTO) 21.1 X10'3 (1.8-7.7); NEUTROPHILS % (AUTO) 93.6 % (42-75); PLATELET COUNT 313 X10'3 (140-440); RED BLOOD COUNT 3.36 X10'6 (4.20-5.60); RED CELL DISTRIBUTION WIDTH 17.9 % (11.5-14.5); WHITE BLOOD COUNT 22.5 X10'3 (4.5-11.0)
[2017-05-17 03:47] LABS: INR 1.1 INR; PARTIAL THROMBOPLASTIN TIME 26 SECONDS (22-32); PROTHROMBIN TIME 10.9 SECONDS (9.0-12.0)
[2017-05-17 03:52] LABS: ALANINE AMINOTRANSFERASE 52 U/L (12-78); ALBUMIN 3.6 G/DL (3.4-5.0); ALBUMIN/GLOBULIN RATIO 1.3 (1.1-1.5); ALKALINE PHOSPHATASE 234 IU/L (46-116); ANION GAP 9 (8-16); ASPARTATE AMINO TRANSFERASE 35 U/L (10-37); BILIRUBIN,TOTAL 0.7 MG/DL (0.1-1.0); BLOOD UREA NITROGEN 68 MG/DL (7-18); BUN/CREATININE RATIO 77.3 (6.6-38.0); CALCIUM 8.7 MG/DL (8.5-10.1); CHLORIDE 109 MMOL/L (99-107); CREATININE 0.88 MG/DL (0.40-0.90); GLUCOSE 135 MG/DL (70-104); MAGNESIUM 2.2 MG/DL (1.5-2.4); PHOSPHORUS 6.5 MG/DL (2.3-4.5); POTASSIUM 4.8 MMOL/L (3.5-5.1); SODIUM 146 MMOL/L (135-145); TOTAL CARBON DIOXIDE 28.1 MMOL/L (24-32); TOTAL PROTEIN 6.4 G/DL (6.4-8.2); eGFR 65 ML/MIN
[2017-05-17] MEDS: K, MAG and/or Phos replacement - Verify level? MC SCH (08:00)
[2017-05-17] MEDS: ipratropium/albuterol 3ml nebule NEB SCH ×3 (08:29→20:32)
[2017-05-17] MEDS: furosemide 40mg tablet PO SCH ×2 (08:31→22:56)
[2017-05-17] MEDS: pantoprazole 40mg Tablet.DR PO SCH (08:31)
[2017-05-17] MEDS: lactobacillus rhamnosus 10,000 MMU CELLS/CAPSULE PO SCH ×2 (08:31→22:55)
[2017-05-17] MEDS: linezolid 600mg tablet PO SCH ×2 (08:32→22:55)
[2017-05-17] MEDS: fluconazole 100mg tablet PO SCH (08:32)
[2017-05-17] MEDS: levoTHYROXINE 175mcg tablet OGT SCH (08:32)
[2017-05-17] MEDS ORDERED: heparin 1,000 units/ml 10ml inj HE ONE (11:15)
[2017-05-17] MEDS ORDERED: albumin (human) 25% 100 ML IV solution IV ONE (14:15)
[2017-05-17] MEDS: nystatin 15 GM powder TP SCH ×2 (14:54→22:57)
[2017-05-17] MEDS: HYDROcodone/acetaminophen 10/325mg tab PO PRN ×2 (16:19→22:57)
[2017-05-17] MEDS: heparin, porcine 5000 units/ml vial SQ SCH (22:57)
[2017-05-18] VITALS (25 sets, daily range): BP systolic 128–164; BP diastolic 58–86
[2017-05-18] MEDS: meropenem inj 1 GM in normal saline 100ml IV soln 100 ML IV SCH ×3 (00:39→16:49)
[2017-05-18] MEDS: hydrocortisone sod succ/PF 100mg/2ml inj. IV SCH ×3 (00:45→16:53)
[2017-05-18 04:48] LABS: BASOPHILS % (AUTO) 0 % (0-1); EOSINOPHILS # (AUTO) 0.3 X10'3 (0-0.9); EOSINOPHILS % (AUTO) 1.7 % (0-6); HEMOGLOBIN 8.1 g/dl (12.0-16.0); LYMPHOCYTES # (AUTO) 0.5 X10'3 (1.1-4.8); LYMPHOCYTES % (AUTO) 2.7 % (21-51); MEAN CORPUSCULAR HGB CONC 32.5 % (33.0-36.5); MEAN CORPUSCULAR VOLUME 86.1 FL (78-98); MEAN PLATELET VOLUME 8.2 FL (7.4-10.4); MONOCYTES # (AUTO) 0.7 X10'3 (0-0.9); MONOCYTES % (AUTO) 3.7 % (2-12); NEUTROPHILS # (AUTO) 17.3 X10'3 (1.8-7.7); NEUTROPHILS % (AUTO) 91.9 % (42-75); PLATELET COUNT 301 X10'3 (140-440); RED CELL DISTRIBUTION WIDTH 17.7 % (11.5-14.5); WHITE BLOOD COUNT 18.8 X10'3 (4.5-11.0)
[2017-05-18 05:00] LABS: INR 1.1 INR; PARTIAL THROMBOPLASTIN TIME 25 SECONDS (22-32); PROTHROMBIN TIME 11.4 SECONDS (9.0-12.0)
[2017-05-18 05:08] LABS: ALANINE AMINOTRANSFERASE 53 U/L (12-78); ALBUMIN 3.4 G/DL (3.4-5.0); ALBUMIN/GLOBULIN RATIO 1.5 (1.1-1.5); ALKALINE PHOSPHATASE 178 IU/L (46-116); ANION GAP 9 (8-16); ASPARTATE AMINO TRANSFERASE 36 U/L (10-37); BILIRUBIN,TOTAL 0.7 MG/DL (0.1-1.0); BLOOD UREA NITROGEN 74 MG/DL (7-18); BUN/CREATININE RATIO 93.7 (6.6-38.0); CALCIUM 8.7 MG/DL (8.5-10.1); CHLORIDE 110 MMOL/L (99-107); CREATININE 0.79 MG/DL (0.40-0.90); GLUCOSE 155 MG/DL (70-104); MAGNESIUM 1.8 MG/DL (1.5-2.4); PHOSPHORUS 4.1 MG/DL (2.3-4.5); POTASSIUM 3.2 MMOL/L (3.5-5.1); SODIUM 148 MMOL/L (135-145); TOTAL CARBON DIOXIDE 29.4 MMOL/L (24-32); TOTAL PROTEIN 5.7 G/DL (6.4-8.2); eGFR 73 ML/MIN
[2017-05-18] MEDS: potassium Cl 40MEQ/250ML bag 250 ML IV PRN (06:37)
[2017-05-18] MEDS: K, MAG and/or Phos replacement - Verify level? MC SCH (06:53)
[2017-05-18] MEDS: HYDROcodone/acetaminophen 10/325mg tab PO PRN ×3 (07:40→21:17)
[2017-05-18] MEDS: ipratropium/albuterol 3ml nebule NEB SCH ×3 (08:19→20:09)
[2017-05-18] MEDS: levoTHYROXINE 175mcg tablet OGT SCH (10:00)
[2017-05-18] MEDS: linezolid 600mg tablet PO SCH ×2 (10:01→21:17)
[2017-05-18] MEDS: fluconazole 100mg tablet PO SCH (10:01)
[2017-05-18] MEDS: pantoprazole 40mg Tablet.DR PO SCH (10:01)
[2017-05-18] MEDS: lactobacillus rhamnosus 10,000 MMU CELLS/CAPSULE PO SCH ×2 (10:01→21:17)
[2017-05-18] MEDS: furosemide 40mg tablet PO SCH (10:01)
[2017-05-18] MEDS: nystatin 15 GM powder TP SCH ×3 (10:02→21:17)
[2017-05-18] MEDS: heparin, porcine 5000 units/ml vial SQ SCH (10:03)
[2017-05-18 16:33] LABS: HEMOGLOBIN 7.8 g/dl (12.0-16.0); MEAN CORPUSCULAR HEMOGLOBIN 28.1 PG (27.0-31.0); MEAN CORPUSCULAR HGB CONC 32.3 % (33.0-36.5); MEAN PLATELET VOLUME 8.4 FL (7.4-10.4); PLATELET COUNT 324 X10'3 (140-440); RED BLOOD COUNT 2.75 X10'6 (4.20-5.60); RED CELL DISTRIBUTION WIDTH 18.4 % (11.5-14.5); WHITE BLOOD COUNT 18.8 X10'3 (4.5-11.0)
[2017-05-18 18:38] LABS: INR 1.1 INR; PARTIAL THROMBOPLASTIN TIME 25 SECONDS (22-32); PROTHROMBIN TIME 11.6 SECONDS (9.0-12.0)
[2017-05-19] VITALS (26 sets, daily range): BP systolic 104–153; BP diastolic 51–81
[2017-05-19] MEDS: hydrocortisone sod succ/PF 100mg/2ml inj. IV SCH ×3 (00:38→16:18)
[2017-05-19] MEDS: meropenem inj 1 GM in normal saline 100ml IV soln 100 ML IV SCH ×3 (00:53→16:19)
[2017-05-19] MEDS: HYDROcodone/acetaminophen 10/325mg tab PO PRN ×3 (05:26→21:22)
[2017-05-19 05:42] LABS: BASOPHILS % (AUTO) 0 % (0-1); EOSINOPHILS # (AUTO) 0.2 X10'3 (0-0.9); EOSINOPHILS % (AUTO) 1.3 % (0-6); HEMATOCRIT 28.7 % (35.0-45.0); HEMOGLOBIN 9.4 g/dl (12.0-16.0); LYMPHOCYTES # (AUTO) 0.7 X10'3 (1.1-4.8); LYMPHOCYTES % (AUTO) 4.8 % (21-51); MEAN CORPUSCULAR HEMOGLOBIN 28.4 PG (27.0-31.0); MEAN CORPUSCULAR HGB CONC 32.8 % (33.0-36.5); MEAN CORPUSCULAR VOLUME 86.8 FL (78-98); MEAN PLATELET VOLUME 8.1 FL (7.4-10.4); MONOCYTES # (AUTO) 0.6 X10'3 (0-0.9); MONOCYTES % (AUTO) 4.1 % (2-12); NEUTROPHILS # (AUTO) 13.6 X10'3 (1.8-7.7); NEUTROPHILS % (AUTO) 89.8 % (42-75); PLATELET COUNT 296 X10'3 (140-440); RED BLOOD COUNT 3.31 X10'6 (4.20-5.60); RED CELL DISTRIBUTION WIDTH 16.2 % (11.5-14.5); WHITE BLOOD COUNT 15.1 X10'3 (4.5-11.0)
[2017-05-19 05:54] LABS: INR 1.1 INR; PARTIAL THROMBOPLASTIN TIME 25 SECONDS (22-32)
[2017-05-19 06:00] LABS: ACETAMINOPHEN 2.1 UG/ML (10-30); ALANINE AMINOTRANSFERASE 64 U/L (12-78); ALBUMIN 3.2 G/DL (3.4-5.0); ALBUMIN/GLOBULIN RATIO 1.2 (1.1-1.5); ALKALINE PHOSPHATASE 175 IU/L (46-116); ANION GAP 6 (8-16); ASPARTATE AMINO TRANSFERASE 41 U/L (10-37); BLOOD UREA NITROGEN 68 MG/DL (7-18); BUN/CREATININE RATIO 113.3 (6.6-38.0); CALCIUM 8.9 MG/DL (8.5-10.1); CHLORIDE 111 MMOL/L (99-107); GLUCOSE 132 MG/DL (70-104); MAGNESIUM 1.6 MG/DL (1.5-2.4); PHOSPHORUS 3.7 MG/DL (2.3-4.5); POTASSIUM 3.5 MMOL/L (3.5-5.1); SODIUM 148 MMOL/L (135-145); TOTAL CARBON DIOXIDE 31.3 MMOL/L (24-32); TOTAL PROTEIN 5.8 G/DL (6.4-8.2); eGFR > 90 ML/MIN
[2017-05-19] MEDS: levoTHYROXINE 175mcg tablet OGT SCH (07:00)
[2017-05-19] MEDS: ipratropium/albuterol 3ml nebule NEB SCH ×3 (07:14→20:31)
[2017-05-19] MEDS: pantoprazole 40mg Tablet.DR PO SCH (07:30)
[2017-05-19] MEDS: lactobacillus rhamnosus 10,000 MMU CELLS/CAPSULE PO SCH ×2 (08:00→19:39)
[2017-05-19] MEDS: fluconazole 100mg tablet PO SCH (08:00)
[2017-05-19] MEDS: K, MAG and/or Phos replacement - Verify level? MC SCH (08:00)
[2017-05-19] MEDS: linezolid 600mg tablet PO SCH ×2 (08:00→19:39)
[2017-05-19] MEDS: nystatin 15 GM powder TP SCH ×3 (08:22→21:23)
[2017-05-19] MEDS ORDERED: fentaNYL/PF 50MCG/1 ML 2ML syringe ONE ×3 (10:31→12:11)
[2017-05-19] MEDS ORDERED: propofol inj 0 ML IV ONE (10:32)
[2017-05-19] MEDS ORDERED: propofol inj 20 ML IV ONE (10:32)
[2017-05-19] MEDS ORDERED: MIDAZolam 5mg/ml 2ml vial ONE ×2 (10:32)
[2017-05-19] MEDS ORDERED: ketamine 10mg/ml 20ml inj ONE (10:32)
[2017-05-19] MEDS ORDERED: LIDOcaine 1% 30ml vial ONE (11:11)
[2017-05-19] MEDS ORDERED: BUPIVAcaine/PF 2.5 mg/ml (0.25%) 30ml vial ONE (11:11)
[2017-05-20] VITALS (23 sets, daily range): BP systolic 105–154; BP diastolic 47–79
[2017-05-20] MEDS: meropenem inj 1 GM in normal saline 100ml IV soln 100 ML IV SCH ×3 (00:35→16:28)
[2017-05-20] MEDS: hydrocortisone sod succ/PF 100mg/2ml inj. IV SCH (00:35)
[2017-05-20] MEDS: HYDROcodone/acetaminophen 10/325mg tab PO PRN ×4 (03:22→20:55)
[2017-05-20 05:37] LABS: BASOPHILS % (AUTO) 0.2 % (0-1); EOSINOPHILS # (AUTO) 0.3 X10'3 (0-0.9); EOSINOPHILS % (AUTO) 1.8 % (0-6); HEMATOCRIT 28.5 % (35.0-45.0); HEMOGLOBIN 9.3 g/dl (12.0-16.0); LYMPHOCYTES # (AUTO) 0.6 X10'3 (1.1-4.8); LYMPHOCYTES % (AUTO) 4.2 % (21-51); MEAN CORPUSCULAR HEMOGLOBIN 28.1 PG (27.0-31.0); MEAN CORPUSCULAR HGB CONC 32.4 % (33.0-36.5); MEAN CORPUSCULAR VOLUME 86.8 FL (78-98); MEAN PLATELET VOLUME 7.9 FL (7.4-10.4); MONOCYTES # (AUTO) 0.6 X10'3 (0-0.9); MONOCYTES % (AUTO) 4.1 % (2-12); NEUTROPHILS # (AUTO) 13.5 X10'3 (1.8-7.7); NEUTROPHILS % (AUTO) 89.7 % (42-75); PLATELET COUNT 329 X10'3 (140-440); RED BLOOD COUNT 3.29 X10'6 (4.20-5.60); RED CELL DISTRIBUTION WIDTH 16.8 % (11.5-14.5); WHITE BLOOD COUNT 15.1 X10'3 (4.5-11.0)
[2017-05-20 05:51] LABS: INR 1.1 INR; PARTIAL THROMBOPLASTIN TIME 24 SECONDS (22-32); PROTHROMBIN TIME 11.1 SECONDS (9.0-12.0)
[2017-05-20 05:58] LABS: ALANINE AMINOTRANSFERASE 69 U/L (12-78); ALBUMIN/GLOBULIN RATIO 1.2 (1.1-1.5); ALKALINE PHOSPHATASE 199 IU/L (46-116); ANION GAP 7 (8-16); ASPARTATE AMINO TRANSFERASE 46 U/L (10-37); BILIRUBIN,TOTAL 0.7 MG/DL (0.1-1.0); BLOOD UREA NITROGEN 55 MG/DL (7-18); BUN/CREATININE RATIO 88.7 (6.6-38.0); CALCIUM 9.1 MG/DL (8.5-10.1); CHLORIDE 112 MMOL/L (99-107); CREATININE 0.62 MG/DL (0.40-0.90); GLUCOSE 129 MG/DL (70-104); MAGNESIUM 1.7 MG/DL (1.5-2.4); PHOSPHORUS 3.4 MG/DL (2.3-4.5); SODIUM 150 MMOL/L (135-145); TOTAL CARBON DIOXIDE 31.1 MMOL/L (24-32); TOTAL PROTEIN 5.6 G/DL (6.4-8.2); eGFR > 90 ML/MIN
[2017-05-20] MEDS: K, MAG and/or Phos replacement - Verify level? MC SCH (08:00)
[2017-05-20] MEDS: lactobacillus rhamnosus 10,000 MMU CELLS/CAPSULE PO SCH ×2 (09:06→20:26)
[2017-05-20] MEDS: levoTHYROXINE 175mcg tablet OGT SCH (09:06)
[2017-05-20] MEDS: HYDROmorphone 2mg tablet PO PRN ×2 (09:06→16:35)
[2017-05-20] MEDS: pantoprazole 40mg Tablet.DR PO SCH (09:06)
[2017-05-20] MEDS: nystatin 15 GM powder TP SCH ×3 (09:07→20:26)
[2017-05-20] MEDS: linezolid 600mg tablet PO SCH ×2 (09:16→20:26)
[2017-05-20] MEDS: fluconazole 100mg tablet PO SCH (09:16)
[2017-05-20] MEDS: ipratropium/albuterol 3ml nebule NEB SCH ×3 (09:24→20:04)
[2017-05-20] MEDS: traMADol 50MG tablet PO PRN ×2 (14:26→23:09)
[2017-05-21] VITALS (24 sets, daily range): BP systolic 94–153; BP diastolic 47–86
[2017-05-21] MEDS: HYDROmorphone 2mg tablet PO PRN (00:41)
[2017-05-21] MEDS: meropenem inj 1 GM in normal saline 100ml IV soln 100 ML IV SCH ×4 (00:44→23:28)
[2017-05-21] MEDS: HYDROcodone/acetaminophen 10/325mg tab PO PRN ×3 (03:30→21:23)
[2017-05-21] MEDS: LORazepam 2 mg/ml vial IV PRN ×2 (04:49→09:21)
[2017-05-21 06:46] LABS: BASOPHILS % (AUTO) 0.2 % (0-1); EOSINOPHILS # (AUTO) 0.5 X10'3 (0-0.9); EOSINOPHILS % (AUTO) 2.4 % (0-6); HEMATOCRIT 29.8 % (35.0-45.0); HEMOGLOBIN 9.7 g/dl (12.0-16.0); LYMPHOCYTES # (AUTO) 1.2 X10'3 (1.1-4.8); LYMPHOCYTES % (AUTO) 6.2 % (21-51); MEAN CORPUSCULAR HEMOGLOBIN 28.5 PG (27.0-31.0); MEAN CORPUSCULAR HGB CONC 32.5 % (33.0-36.5); MEAN CORPUSCULAR VOLUME 87.8 FL (78-98); MEAN PLATELET VOLUME 8.2 FL (7.4-10.4); MONOCYTES # (AUTO) 0.6 X10'3 (0-0.9); MONOCYTES % (AUTO) 3.1 % (2-12); NEUTROPHILS # (AUTO) 17.6 X10'3 (1.8-7.7); NEUTROPHILS % (AUTO) 88.1 % (42-75); PLATELET COUNT 344 X10'3 (140-440); RED BLOOD COUNT 3.39 X10'6 (4.20-5.60)
[2017-05-21 07:24] LABS: ALANINE AMINOTRANSFERASE 65 U/L (12-78); ALBUMIN 2.8 G/DL (3.4-5.0); ALBUMIN/GLOBULIN RATIO 1.1 (1.1-1.5); ALKALINE PHOSPHATASE 188 IU/L (46-116); ANION GAP 5 (8-16); ASPARTATE AMINO TRANSFERASE 39 U/L (10-37); BLOOD UREA NITROGEN 40 MG/DL (7-18); BUN/CREATININE RATIO 71.4 (6.6-38.0); CALCIUM 8.6 MG/DL (8.5-10.1); CHLORIDE 110 MMOL/L (99-107); CREATININE 0.56 MG/DL (0.40-0.90); GLUCOSE 91 MG/DL (70-104); MAGNESIUM 1.5 MG/DL (1.5-2.4); PHOSPHORUS 2.4 MG/DL (2.3-4.5); POTASSIUM 3.5 MMOL/L (3.5-5.1); SODIUM 146 MMOL/L (135-145); TOTAL PROTEIN 5.4 G/DL (6.4-8.2); eGFR > 90 ML/MIN
[2017-05-21] MEDS: K, MAG and/or Phos replacement - Verify level? MC SCH (08:00)
[2017-05-21] MEDS: linezolid 600mg tablet PO SCH ×2 (08:13→20:48)
[2017-05-21] MEDS: pantoprazole 40mg Tablet.DR PO SCH (08:13)
[2017-05-21] MEDS: lactobacillus rhamnosus 10,000 MMU CELLS/CAPSULE PO SCH ×2 (08:13→20:48)
[2017-05-21] MEDS: levoTHYROXINE 175mcg tablet OGT SCH (08:13)
[2017-05-21] MEDS: fluconazole 100mg tablet PO SCH (08:14)
[2017-05-21] MEDS: traMADol 50MG tablet PO PRN (08:15)
[2017-05-21] MEDS: nystatin 15 GM powder TP SCH ×3 (08:16→20:49)
[2017-05-21] MEDS: ipratropium/albuterol 3ml nebule NEB SCH ×3 (08:55→19:49)
[2017-05-21 11:14] LABS: PREALBUMIN 23.3 MG/DL (19-36)
[2017-05-21] MEDS: normal saline 1000ml 1,000 ML IV SCH ×2 (11:14→23:03)
[2017-05-21] MEDS: diatr meglu/diatrizoate 30ml oral sol.-(3 dose) bottle PO SCH (20:48)
[2017-05-22] VITALS (23 sets, daily range): BP systolic 107–164; BP diastolic 52–74
[2017-05-22 02:24] LABS: BASOPHILS % (AUTO) 0 % (0-1); EOSINOPHILS # (AUTO) 0.4 X10'3 (0-0.9); EOSINOPHILS % (AUTO) 2.1 % (0-6); HEMOGLOBIN 9.1 g/dl (12.0-16.0); LYMPHOCYTES # (AUTO) 1.1 X10'3 (1.1-4.8); LYMPHOCYTES % (AUTO) 6.3 % (21-51); MEAN CORPUSCULAR HEMOGLOBIN 28.5 PG (27.0-31.0); MEAN CORPUSCULAR HGB CONC 32.6 % (33.0-36.5); MEAN CORPUSCULAR VOLUME 87.4 FL (78-98); MEAN PLATELET VOLUME 7.9 FL (7.4-10.4); MONOCYTES # (AUTO) 0.8 X10'3 (0-0.9); MONOCYTES % (AUTO) 4.6 % (2-12); NEUTROPHILS # (AUTO) 14.8 X10'3 (1.8-7.7); PLATELET COUNT 302 X10'3 (140-440); RED BLOOD COUNT 3.21 X10'6 (4.20-5.60); RED CELL DISTRIBUTION WIDTH 17.1 % (11.5-14.5)
[2017-05-22 02:39] LABS: ALANINE AMINOTRANSFERASE 51 U/L (12-78); ALBUMIN 2.4 G/DL (3.4-5.0); ALBUMIN/GLOBULIN RATIO 0.9 (1.1-1.5); ALKALINE PHOSPHATASE 176 IU/L (46-116); ANION GAP 8 (8-16); ASPARTATE AMINO TRANSFERASE 29 U/L (10-37); BILIRUBIN,TOTAL 0.8 MG/DL (0.1-1.0); BLOOD UREA NITROGEN 27 MG/DL (7-18); BUN/CREATININE RATIO 47.4 (6.6-38.0); CALCIUM 8.7 MG/DL (8.5-10.1); CHLORIDE 110 MMOL/L (99-107); CREATININE 0.57 MG/DL (0.40-0.90); GLUCOSE 97 MG/DL (70-104); MAGNESIUM 1.3 MG/DL (1.5-2.4); PHOSPHORUS 2.5 MG/DL (2.3-4.5); POTASSIUM 3.5 MMOL/L (3.5-5.1); SODIUM 148 MMOL/L (135-145); TOTAL CARBON DIOXIDE 30.2 MMOL/L (24-32); TOTAL PROTEIN 5.2 G/DL (6.4-8.2); eGFR > 90 ML/MIN
[2017-05-22] MEDS: HYDROcodone/acetaminophen 10/325mg tab PO PRN ×3 (03:30→20:18)
[2017-05-22] MEDS: magnesium Cl slow-release 64mg tablet PO PRN ×2 (04:41→12:26)
[2017-05-22] MEDS: normal saline 1000ml 1,000 ML IV SCH ×3 (07:14→22:38)
[2017-05-22] MEDS: K, MAG and/or Phos replacement - Verify level? MC SCH (07:34)
[2017-05-22] MEDS: meropenem inj 1 GM in normal saline 100ml IV soln 100 ML IV SCH ×2 (07:36→16:14)
[2017-05-22] MEDS: diatr meglu/diatrizoate 30ml oral sol.-(3 dose) bottle PO SCH ×2 (07:36→10:00)
[2017-05-22] MEDS: lactobacillus rhamnosus 10,000 MMU CELLS/CAPSULE PO SCH ×2 (07:39→20:18)
[2017-05-22] MEDS: pantoprazole 40mg Tablet.DR PO SCH (07:39)
[2017-05-22] MEDS: levoTHYROXINE 175mcg tablet OGT SCH (07:40)
[2017-05-22] MEDS: nystatin 15 GM powder TP SCH ×3 (07:40→21:53)
[2017-05-22] MEDS: linezolid 600mg tablet PO SCH ×2 (07:40→20:17)
[2017-05-22] MEDS: fluconazole 100mg tablet PO SCH (07:40)
[2017-05-22] MEDS: ipratropium/albuterol 3ml nebule NEB SCH ×2 (09:50→15:34)
[2017-05-22] MEDS: LORazepam 2 mg/ml vial IV PRN ×2 (09:59→21:52)
[2017-05-22] MEDS ORDERED: iohexol 300mg/ml 100ml inj. ONE (10:27)
[2017-05-22 19:39] LABS: HEMATOCRIT 25.9 % (35.0-45.0); HEMOGLOBIN 8.3 g/dl (12.0-16.0); MEAN CORPUSCULAR VOLUME 87.4 FL (78-98); MEAN PLATELET VOLUME 8.1 FL (7.4-10.4); PLATELET COUNT 207 X10'3 (140-440); RED BLOOD COUNT 2.96 X10'6 (4.20-5.60); RED CELL DISTRIBUTION WIDTH 17.5 % (11.5-14.5)
[2017-05-23] VITALS (23 sets, daily range): BP systolic 108–158; BP diastolic 60–89
[2017-05-23] MEDS: HYDROcodone/acetaminophen 10/325mg tab PO PRN ×4 (00:46→21:03)
[2017-05-23] MEDS: meropenem inj 1 GM in normal saline 100ml IV soln 100 ML IV SCH ×2 (00:47→08:27)
[2017-05-23] MEDS: LORazepam 2 mg/ml vial IV PRN ×3 (02:10→22:46)
[2017-05-23] MEDS: HYDROmorphone 2mg tablet PO PRN (04:31)
[2017-05-23 06:39] LABS: BASOPHILS % (AUTO) 0 % (0-1); EOSINOPHILS # (AUTO) 0.3 X10'3 (0-0.9); EOSINOPHILS % (AUTO) 2.2 % (0-6); HEMATOCRIT 27.9 % (35.0-45.0); LYMPHOCYTES # (AUTO) 0.9 X10'3 (1.1-4.8); LYMPHOCYTES % (AUTO) 7.9 % (21-51); MEAN CORPUSCULAR HEMOGLOBIN 28.1 PG (27.0-31.0); MEAN CORPUSCULAR HGB CONC 32.3 % (33.0-36.5); MEAN CORPUSCULAR VOLUME 87.2 FL (78-98); MONOCYTES # (AUTO) 0.6 X10'3 (0-0.9); MONOCYTES % (AUTO) 5.5 % (2-12); NEUTROPHILS # (AUTO) 9.6 X10'3 (1.8-7.7); NEUTROPHILS % (AUTO) 84.4 % (42-75); PLATELET COUNT 292 X10'3 (140-440); RED CELL DISTRIBUTION WIDTH 17.4 % (11.5-14.5); WHITE BLOOD COUNT 11.3 X10'3 (4.5-11.0)
[2017-05-23 07:32] LABS: ALANINE AMINOTRANSFERASE 41 U/L (12-78); ALBUMIN 2.3 G/DL (3.4-5.0); ALBUMIN/GLOBULIN RATIO 0.7 (1.1-1.5); ALKALINE PHOSPHATASE 183 IU/L (46-116); ANION GAP 13 (8-16); ASPARTATE AMINO TRANSFERASE 29 U/L (10-37); BILIRUBIN,TOTAL 0.5 MG/DL (0.1-1.0); BLOOD UREA NITROGEN 19 MG/DL (7-18); BUN/CREATININE RATIO 33.9 (6.6-38.0); CHLORIDE 111 MMOL/L (99-107); CREATININE 0.56 MG/DL (0.40-0.90); GLUCOSE 120 MG/DL (70-104); MAGNESIUM 1.5 MG/DL (1.5-2.4); PHOSPHORUS 2.7 MG/DL (2.3-4.5); POTASSIUM 3.6 MMOL/L (3.5-5.1); SODIUM 148 MMOL/L (135-145); TOTAL CARBON DIOXIDE 24.4 MMOL/L (24-32); TOTAL PROTEIN 5.5 G/DL (6.4-8.2); TRIGLYCERIDES 120 MG/DL (20-135); eGFR > 90 ML/MIN
[2017-05-23] MEDS: K, MAG and/or Phos replacement - Verify level? MC SCH (08:00)
[2017-05-23] MEDS: LACTOSE-FREE FOOD (BOOST BREEZE) 237ML PO SCH ×3 (08:00→18:00)
[2017-05-23] MEDS: Protein Smoothie (high protein) 240ml (8oz) cup PO SCH ×3 (08:00→18:00)
[2017-05-23] MEDS: pantoprazole 40mg Tablet.DR PO SCH (08:00)
[2017-05-23] MEDS: ipratropium/albuterol 3ml nebule NEB SCH ×3 (08:37→21:41)
[2017-05-23] MEDS: levoTHYROXINE 175mcg tablet OGT SCH (08:47)
[2017-05-23] MEDS: nystatin 15 GM powder TP SCH ×3 (08:49→21:05)
[2017-05-23] MEDS: lactobacillus rhamnosus 10,000 MMU CELLS/CAPSULE PO SCH ×2 (08:49→21:02)
[2017-05-23] MEDS: normal saline 1000ml 1,000 ML IV SCH (11:00)
[2017-05-24] VITALS (19 sets, daily range): BP systolic 102–179; BP diastolic 47–105
[2017-05-24] MEDS: HYDROcodone/acetaminophen 10/325mg tab PO PRN ×3 (04:50→16:30)
[2017-05-24] MEDS: lactobacillus rhamnosus 10,000 MMU CELLS/CAPSULE PO SCH ×2 (07:39→21:33)
[2017-05-24] MEDS: levoTHYROXINE 175mcg tablet OGT SCH (07:39)
[2017-05-24] MEDS: pantoprazole 40mg Tablet.DR PO SCH (07:39)
[2017-05-24] MEDS: LACTOSE-FREE FOOD (BOOST BREEZE) 237ML PO SCH ×3 (08:00→17:54)
[2017-05-24] MEDS: K, MAG and/or Phos replacement - Verify level? MC SCH (08:00)
[2017-05-24] MEDS: Protein Smoothie (high protein) 240ml (8oz) cup PO SCH ×3 (08:09→17:54)
[2017-05-24 08:39] LABS: BASOPHILS % (AUTO) 0 % (0-1); EOSINOPHILS # (AUTO) 0.2 X10'3 (0-0.9); EOSINOPHILS % (AUTO) 2.3 % (0-6); HEMOGLOBIN 8.9 g/dl (12.0-16.0); LYMPHOCYTES # (AUTO) 0.7 X10'3 (1.1-4.8); LYMPHOCYTES % (AUTO) 8.8 % (21-51); MEAN CORPUSCULAR HEMOGLOBIN 28.2 PG (27.0-31.0); MEAN CORPUSCULAR HGB CONC 31.9 % (33.0-36.5); MEAN CORPUSCULAR VOLUME 88.4 FL (78-98); MEAN PLATELET VOLUME 7.3 FL (7.4-10.4); MONOCYTES # (AUTO) 0.5 X10'3 (0-0.9); MONOCYTES % (AUTO) 5.6 % (2-12); NEUTROPHILS # (AUTO) 6.8 X10'3 (1.8-7.7); NEUTROPHILS % (AUTO) 83.3 % (42-75); PLATELET COUNT 286 X10'3 (140-440); RED BLOOD COUNT 3.17 X10'6 (4.20-5.60); WHITE BLOOD COUNT 8.2 X10'3 (4.5-11.0)
[2017-05-24] MEDS: ipratropium/albuterol 3ml nebule NEB SCH ×3 (08:45→20:15)
[2017-05-24 09:02] LABS: ALBUMIN 2.3 G/DL (3.4-5.0); ANION GAP 3 (8-16); BILIRUBIN,TOTAL 0.5 MG/DL (0.1-1.0); BLOOD UREA NITROGEN 14 MG/DL (7-18); BUN/CREATININE RATIO 29.2 (6.6-38.0); CALCIUM 8.8 MG/DL (8.5-10.1); CHLORIDE 111 MMOL/L (99-107); CREATININE 0.48 MG/DL (0.40-0.90); GLUCOSE 86 MG/DL (70-104); POTASSIUM 3.5 MMOL/L (3.5-5.1); SODIUM 148 MMOL/L (135-145); TOTAL CARBON DIOXIDE 34.4 MMOL/L (24-32); TOTAL PROTEIN 5.6 G/DL (6.4-8.2); eGFR > 90 ML/MIN
[2017-05-24 09:03] LABS: ALANINE AMINOTRANSFERASE 42 U/L (12-78); ALBUMIN/GLOBULIN RATIO 0.7 (1.1-1.5); ALKALINE PHOSPHATASE 191 IU/L (46-116); ASPARTATE AMINO TRANSFERASE 34 U/L (10-37)
[2017-05-24] MEDS ORDERED: megestrol acetate 400mg/10ml UD oral suspension PO SCH (11:09)
[2017-05-24] MEDS: HYDROmorphone 2mg tablet PO PRN ×2 (11:48→21:55)
[2017-05-24] MEDS: nystatin 15 GM powder TP SCH ×3 (12:58→21:54)
[2017-05-24] MEDS: megestrol acetate 400mg/10ml UD oral suspension PO SCH (12:58)
[2017-05-24] MEDS: normal saline 1000ml 1,000 ML IV SCH (21:35)
[2017-05-24] MEDS: LORazepam 2 mg/ml vial IV PRN (21:55)
[2017-05-25 03:00] VITALS: BP 118/74
[2017-05-25 06:00] VITALS: BP 149/72
[2017-05-25] MEDS: HYDROcodone/acetaminophen 10/325mg tab PO PRN ×3 (07:00→21:10)
[2017-05-25] MEDS: pantoprazole 40mg Tablet.DR PO SCH (07:00)
[2017-05-25] MEDS: levoTHYROXINE 175mcg tablet OGT SCH (07:00)
[2017-05-25] MEDS: K, MAG and/or Phos replacement - Verify level? MC SCH (08:00)
[2017-05-25] MEDS: LACTOSE-FREE FOOD (BOOST BREEZE) 237ML PO SCH ×3 (08:00→18:00)
[2017-05-25] MEDS: ipratropium/albuterol 3ml nebule NEB SCH ×2 (08:03→14:26)
[2017-05-25] MEDS: Protein Smoothie (high protein) 240ml (8oz) cup PO SCH ×3 (09:09→18:00)
[2017-05-25] MEDS: megestrol acetate 400mg/10ml UD oral suspension PO SCH (09:09)
[2017-05-25] MEDS: lactobacillus rhamnosus 10,000 MMU CELLS/CAPSULE PO SCH ×2 (09:09→21:04)
[2017-05-25] MEDS: nystatin 15 GM powder TP SCH ×3 (09:10→21:04)
[2017-05-25 11:00] VITALS: BP 119/51
[2017-05-25] MEDS: normal saline 1000ml 1,000 ML IV SCH (11:58)
[2017-05-25 12:22] LABS: BASOPHILS % (AUTO) 0.2 % (0-1); EOSINOPHILS # (AUTO) 0.2 X10'3 (0-0.9); EOSINOPHILS % (AUTO) 2.3 % (0-6); HEMATOCRIT 27.9 % (35.0-45.0); HEMOGLOBIN 8.7 g/dl (12.0-16.0); LYMPHOCYTES # (AUTO) 0.8 X10'3 (1.1-4.8); LYMPHOCYTES % (AUTO) 10.2 % (21-51); MEAN CORPUSCULAR HGB CONC 31.3 % (33.0-36.5); MEAN CORPUSCULAR VOLUME 89.3 FL (78-98); MEAN PLATELET VOLUME 6.7 FL (7.4-10.4); MONOCYTES # (AUTO) 0.6 X10'3 (0-0.9); MONOCYTES % (AUTO) 7.7 % (2-12); NEUTROPHILS # (AUTO) 6.1 X10'3 (1.8-7.7); NEUTROPHILS % (AUTO) 79.6 % (42-75); PLATELET COUNT 266 X10'3 (140-440); RED BLOOD COUNT 3.12 X10'6 (4.20-5.60); RED CELL DISTRIBUTION WIDTH 18.2 % (11.5-14.5); WHITE BLOOD COUNT 7.7 X10'3 (4.5-11.0)
[2017-05-25 12:49] LABS: ALANINE AMINOTRANSFERASE 39 U/L (12-78); ALBUMIN 2.1 G/DL (3.4-5.0); ALBUMIN/GLOBULIN RATIO 0.7 (1.1-1.5); ALKALINE PHOSPHATASE 173 IU/L (46-116); ANION GAP 2 (8-16); ASPARTATE AMINO TRANSFERASE 32 U/L (10-37); BILIRUBIN,TOTAL 0.4 MG/DL (0.1-1.0); BLOOD UREA NITROGEN 12 MG/DL (7-18); BUN/CREATININE RATIO 22.2 (6.6-38.0); CALCIUM 8.8 MG/DL (8.5-10.1); CHLORIDE 111 MMOL/L (99-107); CREATININE 0.54 MG/DL (0.40-0.90); GLUCOSE 113 MG/DL (70-104); MAGNESIUM 1.4 MG/DL (1.5-2.4); PHOSPHORUS 3.2 MG/DL (2.3-4.5); POTASSIUM 3.9 MMOL/L (3.5-5.1); SODIUM 148 MMOL/L (135-145); TOTAL CARBON DIOXIDE 35.5 MMOL/L (24-32); TOTAL PROTEIN 5.3 G/DL (6.4-8.2); eGFR > 90 ML/MIN
[2017-05-25 15:00] VITALS: BP 110/54
[2017-05-25] MEDS: HYDROmorphone 2mg tablet PO PRN (15:37)
[2017-05-25] MEDS ORDERED: magnesium 2GM in 50ml NS 50 ML IV PRN (15:45)
[2017-05-25] MEDS ORDERED: magnesium 4gm in 100ml NS 100 ML IV PRN (15:45)
[2017-05-25 19:00] VITALS: BP 123/55
[2017-05-25] MEDS: apixaban 5mg tablet PO SCH (21:23)
[2017-05-25 23:00] VITALS: BP 116/81
[2017-05-26] VITALS (7 sets, daily range): BP systolic 103–140; BP diastolic 48–69
[2017-05-26] MEDS: ipratropium/albuterol 3ml nebule NEB SCH ×4 (00:03→20:33)
[2017-05-26] MEDS: HYDROcodone/acetaminophen 10/325mg tab PO PRN ×2 (03:23→13:51)
[2017-05-26 05:12] LABS: BASOPHILS % (AUTO) 0.1 % (0-1); EOSINOPHILS # (AUTO) 0.1 X10'3 (0-0.9); EOSINOPHILS % (AUTO) 1.6 % (0-6); HEMATOCRIT 27.2 % (35.0-45.0); HEMOGLOBIN 8.6 g/dl (12.0-16.0); LYMPHOCYTES # (AUTO) 0.9 X10'3 (1.1-4.8); LYMPHOCYTES % (AUTO) 9.8 % (21-51); MEAN CORPUSCULAR HEMOGLOBIN 28.4 PG (27.0-31.0); MEAN CORPUSCULAR HGB CONC 31.5 % (33.0-36.5); MEAN CORPUSCULAR VOLUME 90.1 FL (78-98); MEAN PLATELET VOLUME 6.8 FL (7.4-10.4); MONOCYTES # (AUTO) 0.8 X10'3 (0-0.9); MONOCYTES % (AUTO) 9.2 % (2-12); NEUTROPHILS # (AUTO) 7.1 X10'3 (1.8-7.7); NEUTROPHILS % (AUTO) 79.3 % (42-75); PLATELET COUNT 260 X10'3 (140-440); RED BLOOD COUNT 3.02 X10'6 (4.20-5.60); RED CELL DISTRIBUTION WIDTH 17.9 % (11.5-14.5); WHITE BLOOD COUNT 8.9 X10'3 (4.5-11.0)
[2017-05-26 05:36] LABS: ALANINE AMINOTRANSFERASE 37 U/L (12-78); ALBUMIN/GLOBULIN RATIO 0.6 (1.1-1.5); ALKALINE PHOSPHATASE 169 IU/L (46-116); ANION GAP 1 (8-16); ASPARTATE AMINO TRANSFERASE 32 U/L (10-37); BILIRUBIN,TOTAL 0.4 MG/DL (0.1-1.0); BLOOD UREA NITROGEN 13 MG/DL (7-18); CHLORIDE 110 MMOL/L (99-107); CREATININE 0.52 MG/DL (0.40-0.90); GLUCOSE 99 MG/DL (70-104); MAGNESIUM 1.3 MG/DL (1.5-2.4); PHOSPHORUS 3.5 MG/DL (2.3-4.5); SODIUM 148 MMOL/L (135-145); TOTAL CARBON DIOXIDE 37.4 MMOL/L (24-32); TOTAL PROTEIN 5.4 G/DL (6.4-8.2); eGFR > 90 ML/MIN
[2017-05-26] MEDS: HYDROmorphone 2mg tablet PO PRN ×2 (07:04→23:02)
[2017-05-26] MEDS: nystatin 15 GM powder TP SCH ×3 (08:00→21:13)
[2017-05-26] MEDS: K, MAG and/or Phos replacement - Verify level? MC SCH (08:00)
[2017-05-26] MEDS: Protein Smoothie (high protein) 240ml (8oz) cup PO SCH ×3 (08:00→18:55)
[2017-05-26] MEDS: LACTOSE-FREE FOOD (BOOST BREEZE) 237ML PO SCH ×3 (08:00→18:53)
[2017-05-26] MEDS: lactobacillus rhamnosus 10,000 MMU CELLS/CAPSULE PO SCH ×2 (09:09→19:59)
[2017-05-26] MEDS: levoTHYROXINE 175mcg tablet OGT SCH (09:09)
[2017-05-26] MEDS: apixaban 5mg tablet PO SCH ×2 (09:10→19:59)
[2017-05-26] MEDS: pantoprazole 40mg Tablet.DR PO SCH (09:10)
[2017-05-26] MEDS: megestrol acetate 400mg/10ml UD oral suspension PO SCH (09:11)
[2017-05-26] MEDS: magnesium Cl slow-release 64mg tablet PO PRN ×2 (09:12→23:02)
[2017-05-26] MEDS: furosemide 40mg/4ml inj IV SCH (16:23)
[2017-05-27 03:00] VITALS: BP 122/57
[2017-05-27] MEDS: HYDROcodone/acetaminophen 10/325mg tab PO PRN ×3 (05:33→17:55)
[2017-05-27 05:49] LABS: BASOPHILS % (AUTO) 0 % (0-1); EOSINOPHILS # (AUTO) 0.1 X10'3 (0-0.9); EOSINOPHILS % (AUTO) 0.8 % (0-6); HEMATOCRIT 27.3 % (35.0-45.0); HEMOGLOBIN 8.3 g/dl (12.0-16.0); LYMPHOCYTES # (AUTO) 0.9 X10'3 (1.1-4.8); LYMPHOCYTES % (AUTO) 9.5 % (21-51); MEAN CORPUSCULAR HEMOGLOBIN 27.6 PG (27.0-31.0); MEAN CORPUSCULAR HGB CONC 30.3 % (33.0-36.5); MEAN CORPUSCULAR VOLUME 90.9 FL (78-98); MEAN PLATELET VOLUME 6.8 FL (7.4-10.4); MONOCYTES # (AUTO) 0.7 X10'3 (0-0.9); MONOCYTES % (AUTO) 7.1 % (2-12); NEUTROPHILS % (AUTO) 82.6 % (42-75); PLATELET COUNT 255 X10'3 (140-440); RED BLOOD COUNT 3.01 X10'6 (4.20-5.60); RED CELL DISTRIBUTION WIDTH 18.3 % (11.5-14.5); WHITE BLOOD COUNT 9.7 X10'3 (4.5-11.0)
[2017-05-27 06:00] VITALS: BP 122/55
[2017-05-27 06:03] LABS: ALANINE AMINOTRANSFERASE 35 U/L (12-78); ALBUMIN 2.1 G/DL (3.4-5.0); ALBUMIN/GLOBULIN RATIO 0.6 (1.1-1.5); ALKALINE PHOSPHATASE 176 IU/L (46-116); ANION GAP 3 (8-16); ASPARTATE AMINO TRANSFERASE 35 U/L (10-37); BILIRUBIN,TOTAL 0.4 MG/DL (0.1-1.0); BLOOD UREA NITROGEN 16 MG/DL (7-18); BUN/CREATININE RATIO 30.8 (6.6-38.0); CHLORIDE 107 MMOL/L (99-107); CREATININE 0.52 MG/DL (0.40-0.90); GLUCOSE 93 MG/DL (70-104); MAGNESIUM 1.4 MG/DL (1.5-2.4); PHOSPHORUS 3.5 MG/DL (2.3-4.5); POTASSIUM 4.1 MMOL/L (3.5-5.1); PREALBUMIN 10.7 MG/DL (19-36); SODIUM 145 MMOL/L (135-145); TOTAL CARBON DIOXIDE 34.9 MMOL/L (24-32); TOTAL PROTEIN 5.6 G/DL (6.4-8.2); TRIGLYCERIDES 121 MG/DL (20-135); eGFR > 90 ML/MIN
[2017-05-27] MEDS: levoTHYROXINE 175mcg tablet OGT SCH (07:00)
[2017-05-27] MEDS: pantoprazole 40mg Tablet.DR PO SCH (07:30)
[2017-05-27] MEDS: furosemide 40mg/4ml inj IV SCH (08:00)
[2017-05-27] MEDS: lactobacillus rhamnosus 10,000 MMU CELLS/CAPSULE PO SCH ×2 (08:00→19:30)
[2017-05-27] MEDS: Protein Smoothie (high protein) 240ml (8oz) cup PO SCH ×3 (08:00→19:29)
[2017-05-27] MEDS: megestrol acetate 400mg/10ml UD oral suspension PO SCH (08:00)
[2017-05-27] MEDS: LACTOSE-FREE FOOD (BOOST BREEZE) 237ML PO SCH ×3 (08:00→19:29)
[2017-05-27] MEDS: nystatin 15 GM powder TP SCH ×3 (08:00→21:20)
[2017-05-27] MEDS: apixaban 5mg tablet PO SCH ×2 (08:00→19:30)
[2017-05-27] MEDS: K, MAG and/or Phos replacement - Verify level? MC SCH (08:00)
[2017-05-27] MEDS: ipratropium/albuterol 3ml nebule NEB SCH ×3 (08:19→20:34)
[2017-05-27] MEDS: magnesium Cl slow-release 64mg tablet PO PRN ×2 (09:51→17:29)
[2017-05-27 11:00] VITALS: BP 125/68
[2017-05-27] MEDS: HYDROmorphone 2mg tablet PO PRN (13:47)
[2017-05-27 15:00] VITALS: BP 106/55
[2017-05-27 19:00] VITALS: BP 129/56
[2017-05-27 23:00] VITALS: BP 123/66
[2017-05-28] VITALS (15 sets, daily range): BP systolic 24–174; BP diastolic 17–153
[2017-05-28] MEDS: LORazepam 2 mg/ml vial IV PRN (00:03)
[2017-05-28] MEDS: HYDROcodone/acetaminophen 10/325mg tab PO PRN (00:13)
[2017-05-28 06:08] LABS: BASOPHILS % (AUTO) 0.2 % (0-1); EOSINOPHILS # (AUTO) 0.2 X10'3 (0-0.9); HEMATOCRIT 27.6 % (35.0-45.0); HEMOGLOBIN 8.5 g/dl (12.0-16.0); LYMPHOCYTES # (AUTO) 1.5 X10'3 (1.1-4.8); LYMPHOCYTES % (AUTO) 11.9 % (21-51); MEAN CORPUSCULAR HEMOGLOBIN 28.2 PG (27.0-31.0); MEAN CORPUSCULAR HGB CONC 30.8 % (33.0-36.5); MEAN CORPUSCULAR VOLUME 91.6 FL (78-98); MEAN PLATELET VOLUME 6.7 FL (7.4-10.4); MONOCYTES # (AUTO) 0.7 X10'3 (0-0.9); MONOCYTES % (AUTO) 5.5 % (2-12); NEUTROPHILS # (AUTO) 10.2 X10'3 (1.8-7.7); NEUTROPHILS % (AUTO) 80.4 % (42-75); PLATELET COUNT 289 X10'3 (140-440); RED BLOOD COUNT 3.01 X10'6 (4.20-5.60); RED CELL DISTRIBUTION WIDTH 18.6 % (11.5-14.5); WHITE BLOOD COUNT 12.7 X10'3 (4.5-11.0)
[2017-05-28] MEDS: HYDROmorphone 2mg tablet PO PRN (06:38)
[2017-05-28 06:58] LABS: ALANINE AMINOTRANSFERASE 40 U/L (12-78); ALBUMIN 2.2 G/DL (3.4-5.0); ALBUMIN/GLOBULIN RATIO 0.6 (1.1-1.5); ALKALINE PHOSPHATASE 198 IU/L (46-116); ANION GAP 3 (8-16); ASPARTATE AMINO TRANSFERASE 37 U/L (10-37); BILIRUBIN,TOTAL 0.3 MG/DL (0.1-1.0); BLOOD UREA NITROGEN 19 MG/DL (7-18); BUN/CREATININE RATIO 27.1 (6.6-38.0); CALCIUM 9.3 MG/DL (8.5-10.1); CHLORIDE 107 MMOL/L (99-107); GLUCOSE 141 MG/DL (70-104); MAGNESIUM 1.7 MG/DL (1.5-2.4); PHOSPHORUS 4.7 MG/DL (2.3-4.5); POTASSIUM 4.2 MMOL/L (3.5-5.1); SODIUM 147 MMOL/L (135-145); TOTAL CARBON DIOXIDE 37.3 MMOL/L (24-32); eGFR 84 ML/MIN
[2017-05-28] MEDS: levoTHYROXINE 175mcg tablet OGT SCH (07:00)
[2017-05-28] MEDS: pantoprazole 40mg Tablet.DR PO SCH (07:30)
[2017-05-28] MEDS: lactobacillus rhamnosus 10,000 MMU CELLS/CAPSULE PO SCH (08:00)
[2017-05-28] MEDS: K, MAG and/or Phos replacement - Verify level? MC SCH (08:00)
[2017-05-28] MEDS: LACTOSE-FREE FOOD (BOOST BREEZE) 237ML PO SCH ×2 (08:00→13:00)
[2017-05-28] MEDS: apixaban 5mg tablet PO SCH ×2 (08:00→20:00)
[2017-05-28] MEDS: megestrol acetate 400mg/10ml UD oral suspension PO SCH (08:00)
[2017-05-28] MEDS: Protein Smoothie (high protein) 240ml (8oz) cup PO SCH ×2 (08:00→13:00)
[2017-05-28] MEDS: ipratropium/albuterol 3ml nebule NEB SCH ×3 (08:45→22:50)
[2017-05-28] MEDS ORDERED: naloxone 0.4 mg/ml inj ONE (09:10)
[2017-05-28 09:21] LABS: ABG BASE EXCESS 9.9 mmol/L (-2.0-3.0); ABG HCO3 43.4 mmol/L (22.0-26.0); ABG OXYGEN SATURATION 95.4 % (95-98); ABG PCO2 (T) > 150.0 mmHg (32.0-45.0); ABG PH (T) 7.054 (7.350-7.450); ABG PO2 (T) 89.4 mmHg (83-108); FCOHb 1.1 % (0.5-1.5); FMetHb 0.2 % (0.3-1.12); FO2Hb 94.2 % (94-100); TOTAL HEMOGLOBIN 9.3 G/dl (12.0-16.0)
[2017-05-28] MEDS ORDERED: naloxone 0.4 mg/ml inj IV PRN (09:40)
[2017-05-28] MEDS: nystatin 15 GM powder TP SCH ×3 (10:15→21:00)
[2017-05-28 10:56] LABS: ABG BASE EXCESS 7.9 mmol/L (-2.0-3.0); ABG HCO3 37.6 mmol/L (22.0-26.0); ABG OXYGEN SATURATION 95.9 % (95-98); ABG PCO2 (T) 94.4 mmHg (32.0-45.0); ABG PH (T) 7.218 (7.350-7.450); ALLEN'S TEST Positive; FCOHb 0.7 % (0.5-1.5); FMetHb 0.3 % (0.3-1.12); FO2Hb 94.9 % (94-100); RESPIRATORY RATE 24 b/min; RESPIRATORY RATE (OBSERVED) 24 b/min; TOTAL HEMOGLOBIN 8.9 G/dl (12.0-16.0)
[2017-05-28] MEDS ORDERED: epoetin 20,000 units/ml inj SQ ONE (12:00)
[2017-05-28] MEDS ORDERED: furosemide 40mg tablet PO SCH (13:00)
[2017-05-28 14:46] LABS: ABG BASE EXCESS 7.2 mmol/L (-2.0-3.0); ABG OXYGEN SATURATION 93.6 % (95-98); ABG PCO2 (T) 105.8 mmHg (32.0-45.0); ABG PH (T) 7.173 (7.350-7.450); ABG PO2 (T) 70.6 mmHg (83-108); ALLEN'S TEST Positive; FCOHb 0.7 % (0.5-1.5); FMetHb 0.3 % (0.3-1.12); FO2Hb 92.7 % (94-100); RESPIRATORY RATE 24 b/min; RESPIRATORY RATE (OBSERVED) 24 b/min; TOTAL HEMOGLOBIN 9.5 G/dl (12.0-16.0)
[2017-05-28] MEDS ORDERED: naloxone 2mg/2ml inj 2 MG in normal saline 500ml IV soln 498 ML IV SCH (14:50)
[2017-05-28] MEDS ORDERED: furosemide 40mg/4ml inj IV SCH (16:18)
[2017-05-28 17:36] LABS: ABG BASE EXCESS 4.8 mmol/L (-2.0-3.0); ABG HCO3 34.7 mmol/L (22.0-26.0); ABG OXYGEN SATURATION 93.1 % (95-98); ABG PCO2 (T) 93.5 mmHg (32.0-45.0); ABG PH (T) 7.188 (7.350-7.450); ABG PO2 (T) 72.3 mmHg (83-108); ALLEN'S TEST Positive; FCOHb 0.7 % (0.5-1.5); FMetHb 0.1 % (0.3-1.12); FO2Hb 92.4 % (94-100); MINUTE VOLUME 22 L/min; RESPIRATORY RATE 24 b/min; RESPIRATORY RATE (OBSERVED) 24 b/min; TOTAL HEMOGLOBIN 9.2 G/dl (12.0-16.0)
[2017-05-28] MEDS ORDERED: flumazenil 0.1 mg/ml inj. IV ONE (19:00)
[2017-05-28] MEDS ORDERED: NORepinephrine 8mg/ 250ml NS 250 ML IV ONE ×2 (19:15→23:36)
[2017-05-28 19:22] LABS: BASOPHILS % (AUTO) 0.1 % (0-1); EOSINOPHILS % (AUTO) 0.3 % (0-6); HEMATOCRIT 27.6 % (35.0-45.0); HEMOGLOBIN 8.4 g/dl (12.0-16.0); LYMPHOCYTES # (AUTO) 0.5 X10'3 (1.1-4.8); LYMPHOCYTES % (AUTO) 4.3 % (21-51); MEAN CORPUSCULAR HEMOGLOBIN 27.7 PG (27.0-31.0); MEAN CORPUSCULAR HGB CONC 30.2 % (33.0-36.5); MEAN CORPUSCULAR VOLUME 91.6 FL (78-98); MEAN PLATELET VOLUME 6.8 FL (7.4-10.4); MONOCYTES # (AUTO) 0.2 X10'3 (0-0.9); MONOCYTES % (AUTO) 2.2 % (2-12); NEUTROPHILS # (AUTO) 9.8 X10'3 (1.8-7.7); NEUTROPHILS % (AUTO) 93.1 % (42-75); PLATELET COUNT 257 X10'3 (140-440); RED BLOOD COUNT 3.02 X10'6 (4.20-5.60); RED CELL DISTRIBUTION WIDTH 18.3 % (11.5-14.5); WHITE BLOOD COUNT 10.6 X10'3 (4.5-11.0)
[2017-05-28] MEDS ORDERED: fentaNYL/PF 50MCG/1 ML 2ML syringe IV PRN (19:35)
[2017-05-28] MEDS ORDERED: midazolam 2 mg/2 ml injection IV ONE (19:35)
[2017-05-28] MEDS ORDERED: MIDAZolam 5mg/ml 2ml vial ONE (19:45)
[2017-05-28 19:48] LABS: ALANINE AMINOTRANSFERASE 38 U/L (12-78); ALBUMIN/GLOBULIN RATIO 0.6 (1.1-1.5); ALKALINE PHOSPHATASE 169 IU/L (46-116); ANION GAP 1 (8-16); ASPARTATE AMINO TRANSFERASE 33 U/L (10-37); BILIRUBIN,TOTAL 0.5 MG/DL (0.1-1.0); BLOOD UREA NITROGEN 22 MG/DL (7-18); BUN/CREATININE RATIO 29.3 (6.6-38.0); CALCIUM 9.3 MG/DL (8.5-10.1); CHLORIDE 108 MMOL/L (99-107); CREATININE 0.75 MG/DL (0.40-0.90); GLUCOSE 100 MG/DL (70-104); POTASSIUM 4.2 MMOL/L (3.5-5.1); SODIUM 148 MMOL/L (135-145); TOTAL CARBON DIOXIDE 38.6 MMOL/L (24-32); TOTAL PROTEIN 5.5 G/DL (6.4-8.2); TROPONIN I < 0.04 NG/ML (0.0-0.05); eGFR 78 ML/MIN
[2017-05-28] MEDS ORDERED: vancomycin inj 1,000 MG in normal saline 250ml IV soln 250 ML IV SCH (20:00)
[2017-05-28 20:51] LABS: ABG BASE EXCESS 6.8 mmol/L (-2.0-3.0); ABG HCO3 35.1 mmol/L (22.0-26.0); ABG OXYGEN SATURATION 91.9 % (95-98); ABG PCO2 (T) 70.7 mmHg (32.0-45.0); ABG PH (T) 7.305 (7.350-7.450); ABG PO2 (T) 52.6 mmHg (83-108); ALLEN'S TEST Positive; FCOHb 0.2 % (0.5-1.5); FMetHb 0.2 % (0.3-1.12); FO2Hb 91.5 % (94-100); MINUTE VOLUME 9 L/min; PATIENT TEMPERATURE 35.4; PEEP 5 cm H2O; RESPIRATORY RATE 20 b/min; RESPIRATORY RATE (OBSERVED) 20 b/min; TIDAL VOLUME 400 mL; TOTAL HEMOGLOBIN 9.3 G/dl (12.0-16.0)
[2017-05-28 20:55] LABS: OXYGEN SATURATION (MIXED VEN) 69.1 % (60-80); PO2 MIXED VENOUS (TEMP COR) 29.6 mmHg (35-46)
[2017-05-28 21:43] LABS: MAGNESIUM 1.4 MG/DL (1.5-2.4)
[2017-05-28] MEDS: FENTANYL-0.9 % NACL/PF 100 ML IV PRN (22:23)
[2017-05-28] MEDS: midazolam 100mg in NS 100ml 100 ML IV PRN (22:24)
[2017-05-28] MEDS ORDERED: potassium Cl 40MEQ/250ML bag 250 ML IV PRN ×2 (22:45)
[2017-05-28] MEDS ORDERED: magnesium 4gm in 100ml NS 100 ML IV PRN (22:45)
[2017-05-28] MEDS: K and/or MAG REPLACEMENT MC SCH (22:45)
[2017-05-28] MEDS ORDERED: magnesium 2GM in 50ml NS 50 ML IV PRN (22:45)
[2017-05-28] MEDS ORDERED: normal saline 500ml IV soln 1,000 ML IV ONE (22:45)
[2017-05-28] MEDS ORDERED: MEROPENEM 500 MG IV ONE (23:58)
[2017-05-29] VITALS (32 sets, daily range): BP systolic 78–153; BP diastolic 42–78
[2017-05-29] MEDS: meropenem inj 1 GM in normal saline 100ml IV soln 100 ML IV SCH ×3 (00:42→16:00)
[2017-05-29] MEDS: NORepinephrine 8mg/ 250ml NS 250 ML IV SCH ×2 (00:43→12:08)
[2017-05-29] MEDS ORDERED: albumin (human) 25% 100 ML IV solution IV ONE (01:15)
[2017-05-29] MEDS ORDERED: vasopressin inj. 60 UNIT in normal saline 100ml IV soln 97 ML IV SCH (01:15)
[2017-05-29] MEDS ORDERED: normal saline 500ml IV soln 1,000 ML IV ONE (01:15)
[2017-05-29] MEDS: normal saline 1000ml 1,000 ML IV SCH (01:26)
[2017-05-29] MEDS ORDERED: vasoPRESSIN 20 units/ml inj. ONE ×2 (01:27→01:35)
[2017-05-29 03:15] LABS: BASOPHILS % (AUTO) 0.1 % (0-1); EOSINOPHILS # (AUTO) 0.1 X10'3 (0-0.9); EOSINOPHILS % (AUTO) 0.4 % (0-6); HEMATOCRIT 22.5 % (35.0-45.0); LYMPHOCYTES # (AUTO) 0.7 X10'3 (1.1-4.8); LYMPHOCYTES % (AUTO) 4.6 % (21-51); MEAN CORPUSCULAR HEMOGLOBIN 27.9 PG (27.0-31.0); MEAN CORPUSCULAR HGB CONC 30.8 % (33.0-36.5); MEAN CORPUSCULAR VOLUME 90.6 FL (78-98); MEAN PLATELET VOLUME 6.4 FL (7.4-10.4); MONOCYTES # (AUTO) 0.4 X10'3 (0-0.9); MONOCYTES % (AUTO) 2.9 % (2-12); NEUTROPHILS # (AUTO) 14.3 X10'3 (1.8-7.7); PLATELET COUNT 244 X10'3 (140-440); RED BLOOD COUNT 2.48 X10'6 (4.20-5.60); RED CELL DISTRIBUTION WIDTH 18.2 % (11.5-14.5); WHITE BLOOD COUNT 15.5 X10'3 (4.5-11.0)
[2017-05-29] MEDS: FENTANYL-0.9 % NACL/PF 100 ML IV PRN (03:27)
[2017-05-29 03:39] LABS: ALANINE AMINOTRANSFERASE 32 U/L (12-78); ALBUMIN 2.6 G/DL (3.4-5.0); ALBUMIN/GLOBULIN RATIO 0.9 (1.1-1.5); ALKALINE PHOSPHATASE 144 IU/L (46-116); ANION GAP 6 (8-16); ASPARTATE AMINO TRANSFERASE 35 U/L (10-37); BILIRUBIN,TOTAL 0.8 MG/DL (0.1-1.0); CALCIUM 8.9 MG/DL (8.5-10.1); CHLORIDE 108 MMOL/L (99-107); CREATININE 0.71 MG/DL (0.40-0.90); GLUCOSE 76 MG/DL (70-104); MAGNESIUM 1.6 MG/DL (1.5-2.4); PHOSPHORUS 2.4 MG/DL (2.3-4.5); POTASSIUM 3.7 MMOL/L (3.5-5.1); SODIUM 146 MMOL/L (135-145); TOTAL CARBON DIOXIDE 31.8 MMOL/L (24-32); TOTAL PROTEIN 5.6 G/DL (6.4-8.2); eGFR 83 ML/MIN
[2017-05-29 03:43] LABS: HEMOGLOBIN 6.9 g/dl (12.0-16.0)
[2017-05-29 03:46] LABS: ABG BASE EXCESS 1.3 mmol/L (-2.0-3.0); ABG OXYGEN SATURATION 95.1 % (95-98); ABG PCO2 (T) 49.2 mmHg (32.0-45.0); ABG PH (T) 7.359 (7.350-7.450); ABG PO2 (T) 76.1 mmHg (83-108); ALLEN'S TEST Positive; FCOHb 0.3 % (0.5-1.5); FMetHb 0.3 % (0.3-1.12); FO2Hb 94.5 % (94-100); MINUTE VOLUME 9 L/min; PATIENT TEMPERATURE 37.4; PEEP 5 cm H2O; RESPIRATORY RATE 20 b/min; RESPIRATORY RATE (OBSERVED) 20 b/min; TIDAL VOLUME 400 mL; TOTAL HEMOGLOBIN 7.9 G/dl (12.0-16.0)
[2017-05-29 03:56] LABS: BLOOD UREA NITROGEN 24 MG/DL (7-18); BUN/CREATININE RATIO 33.8 (6.6-38.0)
[2017-05-29 06:01] LABS: BANDS% (MANUAL) 10 % (0-10); LYMPHOCYTES % (MANUAL) 3 % (21-51); MONOCYTES % (MANUAL) 2 % (2-12); NEUTROPHILS % (MANUAL) 84 % (42-75); TOTAL CELLS COUNTED 100
[2017-05-29 06:02] LABS: ANISOCYTOSIS 2+; HYPOCHROMASIA 1+; METAMYLEOCYTES% (MANUAL) 1 % (0-0); PLATELET ESTIMATE NORMAL
[2017-05-29 06:03] LABS: TOXIC GRANULATION 1+
[2017-05-29] MEDS: levoTHYROXINE 175mcg tablet OGT SCH (07:45)
[2017-05-29] MEDS: apixaban 5mg tablet PO SCH ×2 (07:45→20:01)
[2017-05-29] MEDS: furosemide 20MG tablet PO SCH ×3 (07:46→20:01)
[2017-05-29] MEDS: spironolactone 50 MG tablet PO SCH ×3 (08:00→20:01)
[2017-05-29] MEDS: K and/or MAG REPLACEMENT MC SCH (08:00)
[2017-05-29] MEDS: ipratropium/albuterol 3ml nebule NEB SCH ×3 (09:22→21:20)
[2017-05-29] MEDS: nystatin 15 GM powder TP SCH ×3 (12:09→20:17)
[2017-05-29] MEDS: mineral oil/petrolatum ophthal oint EACHEYE SCH (20:04)
[2017-05-30] VITALS (24 sets, daily range): BP systolic 78–147; BP diastolic 41–76
[2017-05-30] MEDS: meropenem inj 1 GM in normal saline 100ml IV soln 100 ML IV SCH ×4 (00:07→23:39)
[2017-05-30] MEDS: normal saline 1000ml 1,000 ML IV SCH (02:27)
[2017-05-30] MEDS: mineral oil/petrolatum ophthal oint EACHEYE SCH ×4 (02:28→21:07)
[2017-05-30] MEDS: midazolam 100mg in NS 100ml 100 ML IV PRN (02:28)
[2017-05-30 03:45] LABS: ABG BASE EXCESS 6.1 mmol/L (-2.0-3.0); ABG HCO3 30.4 mmol/L (22.0-26.0); ABG PCO2 (T) 44.1 mmHg (32.0-45.0); ABG PH (T) 7.458 (7.350-7.450); ABG PO2 (T) 75.3 mmHg (83-108); ALLEN'S TEST Positive; FCOHb 0.3 % (0.5-1.5); FMetHb 0.1 % (0.3-1.12); FO2Hb 94.6 % (94-100); MINUTE VOLUME 9 L/min; PATIENT TEMPERATURE 37.5; PEEP 5 cm H2O; RESPIRATORY RATE 20 b/min; RESPIRATORY RATE (OBSERVED) 20 b/min; TIDAL VOLUME 400 mL; TOTAL HEMOGLOBIN 9.1 G/dl (12.0-16.0)
[2017-05-30] MEDS: K and/or MAG REPLACEMENT MC SCH (08:00)
[2017-05-30] MEDS: levoTHYROXINE 175mcg tablet OGT SCH (08:28)
[2017-05-30] MEDS: furosemide 20MG tablet PO SCH ×3 (08:28→21:04)
[2017-05-30] MEDS: apixaban 5mg tablet PO SCH ×2 (08:28→21:03)
[2017-05-30] MEDS: spironolactone 50 MG tablet PO SCH ×3 (08:28→21:03)
[2017-05-30] MEDS: nystatin 15 GM powder TP SCH ×3 (08:31→21:07)
[2017-05-30] MEDS: FENTANYL-0.9 % NACL/PF 100 ML IV PRN (08:31)
[2017-05-30] MEDS: ipratropium/albuterol 3ml nebule NEB SCH ×2 (09:03→15:25)
[2017-05-30] MEDS ORDERED: phytonadione inj. 10 MG in normal saline 100ml IV soln 99 ML IV ONE (12:20)
[2017-05-30] MEDS: famotidine/PF 10 mg/ml inj IV SCH (21:04)
[2017-05-31] VITALS (16 sets, daily range): BP systolic 100–123; BP diastolic 48–68
[2017-05-31] MEDS: mineral oil/petrolatum ophthal oint EACHEYE SCH ×4 (02:00→20:00)
[2017-05-31] MEDS: normal saline 1000ml 1,000 ML IV SCH (03:25)
[2017-05-31 04:15] LABS: ABG BASE EXCESS 9.2 mmol/L (-2.0-3.0); ABG HCO3 34.5 mmol/L (22.0-26.0); ABG OXYGEN SATURATION 95.7 % (95-98); ABG PCO2 (T) 52.4 mmHg (32.0-45.0); ABG PH (T) 7.438 (7.350-7.450); ABG PO2 (T) 83.1 mmHg (83-108); FCOHb 0.2 % (0.5-1.5); FMetHb 0.2 % (0.3-1.12); FO2Hb 95.3 % (94-100); MINUTE VOLUME 6 L/min; PATIENT TEMPERATURE 37.3; PEEP 5 cm H2O; RESPIRATORY RATE 16 b/min; RESPIRATORY RATE (OBSERVED) 16 b/min; TIDAL VOLUME 400 mL
[2017-05-31] MEDS ORDERED: LACTOBACILLUS RHAMNOSUS GG 15 billion unit sprinkle caps PO SCH (07:30)
[2017-05-31] MEDS: K and/or MAG REPLACEMENT MC SCH (07:48)
[2017-05-31] MEDS ORDERED: epoetin 20,000 units/ml inj SQ ONE (08:00)
[2017-05-31] MEDS: levoTHYROXINE 175mcg tablet OGT SCH (08:30)
[2017-05-31] MEDS: spironolactone 50 MG tablet PO SCH ×3 (08:30→21:00)
[2017-05-31] MEDS: apixaban 5mg tablet PO SCH ×2 (08:31→20:00)
[2017-05-31] MEDS: famotidine/PF 10 mg/ml inj IV SCH ×2 (08:31→20:00)
[2017-05-31] MEDS: nystatin 15 GM powder TP SCH ×3 (08:31→21:00)
[2017-05-31] MEDS: furosemide 20MG tablet PO SCH ×3 (08:31→21:00)
[2017-05-31] MEDS: ipratropium/albuterol 3ml nebule NEB SCH ×3 (09:19→21:00)
[2017-05-31] MEDS: meropenem inj 1 GM in normal saline 100ml IV soln 100 ML IV SCH ×2 (09:27→16:00)
[2017-05-31] MEDS ORDERED: morphine 2 MG/ML inj. syringe IV PRN (11:50)
[2017-05-31] MEDS: FENTANYL-0.9 % NACL/PF 100 ML IV PRN (13:35)
[2017-05-31] MEDS ORDERED: LORazepam 2 mg/ml vial IV PRN (13:45)
[2017-05-31] MEDS ORDERED: morphine 10mg/ml inj. IV PRN (13:45)
[2017-05-31] MEDS ORDERED: morphine 10mg/0.5ml (conc. morphine) oral syringe PO PRN (13:45)
[2017-05-31] MEDS ORDERED: acetaminophen 325mg tablet PO PRN (13:45)
[2017-05-31] MEDS ORDERED: FLU VACC QS2017-18 36MOS UP/PF 60 MCG/0.5 ML SYRINGE IMVAC ONE (13:55)
[2017-05-31] MEDS ORDERED: sennosides/docusate sodium tablet PO SCH (20:00)
[2017-05-31] MEDS ORDERED: docusate sod 100mg capsule PO SCH (20:00)
[2017-06-01] MEDS: mineral oil/petrolatum ophthal oint EACHEYE SCH (01:13)
[2017-06-01] MEDS: meropenem inj 1 GM in normal saline 100ml IV soln 100 ML IV SCH (01:13)
[2017-06-01] MEDS: normal saline 1000ml 1,000 ML IV SCH (03:13)
[2017-06-01] MEDS: FENTANYL-0.9 % NACL/PF 100 ML IV PRN (03:47)
[2017-06-01] MEDS: midazolam 100mg in NS 100ml 100 ML IV PRN (03:48)
[2017-06-01] MEDS ORDERED: FENTANYL-0.9 % NACL/PF 100 ML IV PRN (04:33)
[2017-06-01] MEDS ORDERED: midazolam 100mg in NS 100ml 100 ML IV PRN (04:33)
[2017-06-01] MEDS: LORazepam 2 mg/ml vial IV PRN ×2 (07:41→12:10)
[2017-06-09] MEDS ORDERED: NORepinephrine bitartrate 8 MG in NS 250 ML BAG (32 mcg/ml) IV ONE (12:00)
== END 2017-06-01 17:01 | disposition expired | DRG 710 ==
LOC: ICU 2S 14:56 → PCU 3S 05-24 14:59 → CICU 2S 05-28 19:45
PROVIDERS: ADMIT Internal Medicine Critical Care Medicine; ATTEND Internal Medicine Critical Care Medicine
PROC: 5A1955Z Respiratory Ventilation, Greater than 96 Consecutive Hours (ICD-10-PCS; 2017-05-05)
PROC: BW211ZZ Computerized Tomography (CT Scan) of Abdomen and Pelvis using Low Osmolar Contrast (ICD-10-PCS; 2017-05-05)
PROC: B32T1ZZ Computerized Tomography (CT Scan) of Left Pulmonary Artery using Low Osmolar Contrast (ICD-10-PCS; 2017-05-05)
PROC: B3201ZZ Computerized Tomography (CT Scan) of Thoracic Aorta using Low Osmolar Contrast (ICD-10-PCS; 2017-05-05)
PROC: B32S1ZZ Computerized Tomography (CT Scan) of Right Pulmonary Artery using Low Osmolar Contrast (ICD-10-PCS; 2017-05-05)
PROC: 0BH17EZ Insertion of Endotracheal Airway into Trachea, Via Natural or Artificial Opening (ICD-10-PCS; 2017-05-05)
PROC: 30233N1 Transfusion of Nonautologous Red Blood Cells into Peripheral Vein, Percutaneous Approach (ICD-10-PCS; 2017-05-06)
PROC: 3E1M38Z Irrigation of Peritoneal Cavity using Irrigating Substance, Percutaneous Approach (ICD-10-PCS; 2017-05-06)
PROC: 0DN80ZZ Release Small Intestine, Open Approach (ICD-10-PCS; principal; 2017-05-06 10:38)
PROC: 0W9B3ZX Drainage of Left Pleural Cavity, Percutaneous Approach, Diagnostic (ICD-10-PCS; 2017-05-08)
PROC: 5A09357 Assistance with Respiratory Ventilation, Less than 24 Consecutive Hours, Continuous Positive Airway Pressure (ICD-10-PCS; 2017-05-16)
PROC: 5A09357 Assistance with Respiratory Ventilation, Less than 24 Consecutive Hours, Continuous Positive Airway Pressure (ICD-10-PCS; 2017-05-18)
PROC: 0WQFXZZ Repair Abdominal Wall, External Approach (ICD-10-PCS; 2017-05-19)
PROC: 5A09457 Assistance with Respiratory Ventilation, 24-96 Consecutive Hours, Continuous Positive Airway Pressure (ICD-10-PCS; 2017-05-21)
PROC: BW211ZZ Computerized Tomography (CT Scan) of Abdomen and Pelvis using Low Osmolar Contrast (ICD-10-PCS; 2017-05-22)
PROC: 5A09357 Assistance with Respiratory Ventilation, Less than 24 Consecutive Hours, Continuous Positive Airway Pressure (ICD-10-PCS; 2017-05-23)
PROC: 5A09357 Assistance with Respiratory Ventilation, Less than 24 Consecutive Hours, Continuous Positive Airway Pressure (ICD-10-PCS; 2017-05-24)
PROC: 02HV33Z Insertion of Infusion Device into Superior Vena Cava, Percutaneous Approach (ICD-10-PCS; 2017-05-28)
PROC: 0BH17EZ Insertion of Endotracheal Airway into Trachea, Via Natural or Artificial Opening (ICD-10-PCS; 2017-05-28)
PROC: 5A09357 Assistance with Respiratory Ventilation, Less than 24 Consecutive Hours, Continuous Positive Airway Pressure (ICD-10-PCS; 2017-05-28)
PROC: 5A1945Z Respiratory Ventilation, 24-96 Consecutive Hours (ICD-10-PCS; 2017-05-28)
DX: A41.9 Sepsis, unspecified organism (principal); R65.21 Severe sepsis with septic shock; J96.00 Acute respiratory failure, unspecified whether with hypoxia or hypercapnia; K65.0 Generalized (acute) peritonitis; J90 Pleural effusion, not elsewhere classified; N17.9 Acute kidney failure, unspecified; K65.9 Peritonitis, unspecified; K55.9 Vascular disorder of intestine, unspecified; Z66 Do not resuscitate; J44.9 Chronic obstructive pulmonary disease, unspecified; Z16.12 Extended spectrum beta lactamase (ESBL) resistance; J45.909 Unspecified asthma, uncomplicated; K66.0 Peritoneal adhesions (postprocedural) (postinfection); J98.01 Acute bronchospasm; B96.20 Unspecified Escherichia coli [E. coli] as the cause of diseases classified elsewhere; B95.61 Methicillin susceptible Staphylococcus aureus infection as the cause of diseases classified elsewhere; B95.2 Enterococcus as the cause of diseases classified elsewhere; K56.7 Ileus, unspecified; E66.9 Obesity, unspecified; G47.33 Obstructive sleep apnea (adult) (pediatric); Z51.5 Encounter for palliative care; I51.7 Cardiomegaly; E87.70 Fluid overload, unspecified; L30.4 Erythema intertrigo; G89.29 Other chronic pain; Z90.49 Acquired absence of other specified parts of digestive tract; K44.9 Diaphragmatic hernia without obstruction or gangrene; X58.XXXA Exposure to other specified factors, initial encounter; Y93.89 Activity, other specified; S30.1XXA Contusion of abdominal wall, initial encounter; Y92.89 Other specified places as the place of occurrence of the external cause; Y99.8 Other external cause status; K94.29 Other complications of gastrostomy; Z93.2 Ileostomy status; Z68.43 Body mass index [BMI] 50.0-59.9, adult; Z23 Encounter for immunization; Z93.3 Colostomy status; Z88.8 Allergy status to other drugs, medicaments and biological substances
CPT/HCPCS: 32555; 36415; 36600; 71010; 71045; 71250; 71275; 74000; 74176; 74177; 80048; 80053; 80202; 80329; 81001; 82533; 82570; 82803; 82810; 82948; 83605; 83735; 83880; 84100; 84134; 84145; 84156; 84439; 84443; 84478; 84484; 84540; 85018; 85025; 85027; 85379; 85384; 85610; 85730; 86885; 86900; 86901; 86920; 87040; 87070; 87075; 87077; 87102; 87103; 87186; 87324; 87340; 87449; 92616; 93005; 93931; 94002; 94003; 94640; 94660; 94667; 94668; 94760; 97110; 97162; 97530; A4315; A4371; A4414; A4421; A4649; A6196; A6209; A6212; A6213; A6222; A6251; A6253; A6257; A6258; A6449; A7000; A7015; A7521; A7526; C1751; C1758; C1894; C9113; G0257; J0885; J1450; J1580; J1644; J1720; J1815; J1940; J1956; J2060; J2150; J2185; J2250; J2270; J2310; J2704; J3010; J3370; J3475; J3480; J3490; J7030; J7042; J7070; J7120; P9016; P9045; P9047; Q9963; Q9967